=== PATIENT | female | born 1995 | race Two or more races ===

== ENCOUNTER 2024-09-17 13:34 | Outpatient (AMB) | payer MEDICAID, SELFPAY ==
--- NOTE | 2024-09-17 13:36 | OBCLNT_ITS ---
Vital Signs 09/17/24 13:58 Height 1.52 m Height Method Measured Weight 108.125 kg Weight Measurement Method Standing Scale BMI 46.5 BP 134/81 H Blood Pressure Source Automatic Cuff Blood Pressure Location Right Upper Arm Position Sitting Respiration 17 Pulse 100 Pulse Source Monitor Temp 98.5 F Temp Source Temporal Artery Scan Pulse Oximetry (%) 97 Oxygen Delivery Method Room Air Allergies/Home Meds Allergies & Medications Allergies No Known Allergies Allergy (Verified 09/17/24 14:00) Medication Reconciliation aspirin 81 mg tablet,delayed release (Adult Aspirin Regimen) 81 mg PO QDAY #60 tabs 09/17/24 [Rx] vitamin-ferrous fumarate 28 mg iron-folic acid 800 mcg tablet ( Vitamins with Minerals) 1 tab PO QDAY #60 tabs 09/17/24 [Rx] Intake Visit Data Collection New Patient or Established: Established Patient (seen at [facility] within 3 years) Reason for Visit:: OBI Consent obtained for Telemed Visit: No Seen by Clinical Staff ONLY (RN/MA): No Pharmacy Assistant Required: No Do You Feel Safe at Home: Yes Authorities Contacted: N/A PCP or OBGYN visit in last 3 months: No Hx Now: Yes Are you currently on any form of Control: No Pain Present Currently: No Pain Scale Used: Leon-Donis/Numerical Pain scale:: 0 Smoking Status Smoking Status: Never smoker Questionnaires Covid-19 Vaccine Questionnaire Has patient been vacinated for Covid-19 Have you been vacinated for Covid-19: Yes PHQ-9 PHQ-2 Over the last 2 weeks, how often have you been bothered by any of the following problems? 1. Little interest or pleasure in doing things: not at all 2. Feeling down, depressed, or hopeless: not at all Total score: 0 PHQ-9 3. Trouble falling or staying asleep, or sleeping too much: Not at all 4. Feeling tired or having little energy: Not at all 5. Poor appetite or overeating: Not at all 6. Feeling bad about yourself - or that you are a failure or have let yourself or your family down: Not at all 7. Trouble concentrating on things, such as reading the newspaper or watching television: Not at all 8. Moving or speaking so slowly that other people could have noticed? - Or the opposite - being so fidgety or restless that you have been moving around a lot more than usual: not at all 9. Thoughts that you would be better off or of hurting yourself in some way: Not at all Total score: 0 If you checked off any problems, how difficult have these problems made it for you to do your work, take care of things at home, or get along with other people?: not difficult at all Source: Developed by Drs. Asher Lozano, Luciana Khanna, Haris Lawrence and colleagues, with an educational susan from [employer]. Social History Living Situation History Lives With: Family Housing: Apartment Tobacco History Smoking Status: Never smoker Second Hand Smoke Exposure: No Alcohol History Alcohol Intake: Never Domestic Abuse History Do You Feel Safe at Home: Yes History of Present Illness HPI Narrative 28-year-old 6 para 5 comes today for initial OB appointment. Patient's had a hard time finding OB care for this . Her last period April 25, 2024. She reports sure dates. Estimated due date January 29, 2025. Denies any leaking bleeding or cramps. Patient and partner are happy with the . She reports movement. Patient denies any history of social habits. And denies any existence of chronic illness. She had GDM with her third and it was diet only. And she had a lap parvin in 2014. 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 Patient has had trouble finding care. Her last period April 25, 2024. She reports her dates. This gives EDC January 29, 2025. Reports good movement. Her last was significant for a small baby. And she had diabetes with her third . Denies social habits. Denies social history. Patient had a lap parvin. Denies any labor complaints. Both her and her partner are happy about the . schedule MFM sono, OB panel, A1c, NIPT and carrier screen today, start PNV and ASA. discuss diet, weight gain, walk, hydrate and PTL precaution. RTC 4 week obc Menstrual History Menstrual reliability: definite Flow: normal Menstrual regularity: regular Monthly: Yes Age at menarche: 12 On control pills at conception: No Date of positive home test: 04/25/24 OB History : 7 Para: 5 Hx # Pregnancies: 0 Hx Total # of Abortions (Spontaneous & Elective): 1 # of Living Children: 5 Delivery History 1st : Child's name: RIZWANA date: 10/08/14 sex: male Gestational age at delivery (weeks): 41 Delivery type: vaginal weight (lbs): 2721.554 g weight (oz): 311.845 g History of depression before or after : No 2nd : Child's name: NICOLE date: 09/29/15 sex: female Gestational age at delivery (weeks): 39 Delivery type: vaginal weight (lbs): 2721.554 g weight (oz): 368.544 g History of depression before or after : No 3rd : Child's name: GALO date: 01/31/17 sex: female Gestational age at delivery (weeks): 38 Delivery type: vaginal weight (lbs): 3175.147 g History of depression before or after : No 4th : Child's name: DEREK date: 03/02/18 sex: male Gestational age at delivery (weeks): 39 Delivery type: vaginal weight (lbs): 2721.554 g weight (oz): 283.495 g History of depression before or after : No 5th : Child's name: AYSE date: 01/06/24 sex: female Gestational age at delivery (weeks): 38 Delivery type: vaginal weight (lbs): 2267.962 g weight (oz): 368.544 g History of depression before or after : No Infection History & Risk Evaluation History of STDs: none HIV risk evaluation: low risk Hepatitis B risk evaluation: low risk Patient or partner has history of Genital Herpes: No Genetic Screening & History Genetic Screening/Teratology Counseling - Includes patient, baby's father, or anyone in either family with: 1. Patient's age 35 years or older as of estimated date of delivery: No 2. Thalassemia (Sinhala, Saudi Arabian, Mediterranean, or Background); MCV less than 80: No 3. Neural Tube Defect (Meningomyelocele, Spina Bifida, or Anencephaly): No 4. Congenital Heart Defect: No 5. Down Syndrome: No 6. Yordy-Sachs (Ashkenazi Rastafari, Cajun, [place] Dennis): No 7. Yolanda Disease (Ashkenazi Rastafari): No 8. Familial Dysautonomia (Ashkenazi Rastafari): No 9. Sickle Cell Disease or Trait (): No 10. Hemophilia or other blood disorders: No 11. Muscular Dystrophy: No 12. Cystic Fibrosis: No 13. [place]'s Chorea: No 14. Mental Retardation/Autism: No 15. Other inherited genetic or chromosomal disorder: No 16. Maternal Metabolic Disorder (EG,TYPE 1 Diabetes, PKU): No 17. Patient or baby's father had a child with defects not listed above: No 18. Recurrent loss or a stillbirth: No 19. Medications (including supplements, vitamins, herbs or otc drugs)/illicit/recreational drugs/alcohol since last menstrual period: No 20. Any other: No Infection History 1. Live with someone with TB or exposed to TB: No 2. Rash or viral illness since last menstrual period: No 3. Hepatitis B,C: No Other (see comments) Source: [employer] Review of Systems Review of Systems Systems Reviewed: All systems reviewed, normal except as documented Exam General Limitations: no limitations General Appearance: alert, in no apparent distress, comfortable, cooperative, healthy appearing, well developed and well groomed Head Head exam: atraumatic, normocephalic and normal inspection Chest Chest inspection: Present normal inspection and symmetric chest wall rise Resp Respiratory exam: Present normal lung sounds bilaterally Card Cardiovascular exam: Present regular rate, normal rhythm and normal heart sounds Psych Psychiatric exam: Present normal affect and normal mood Office Procedures OB Clinic LOC & Office Proc's Nursing/Assessment Patient Status: Established Patient OB Clinic Nursing Assessment: Medication Reconciliation, Update PMH in EMR and Vital Signs OB Clinic Coordination of Care: Complex Care and Chronic Disease 1-5, Consent,records obtained, informed consent, 4+ Authorizations needed and Staff clarify orders Special Needs: Heart tones Established Patient Charge Established Patient Point Assignment: 125 Established Patient Point Charge: EP Level 4 (120-155) Assessment & Plan Diagnosis / Problem List (1) Obesity affecting in second trimester: Status: Acute (2) Encounter for supervision of high risk in second trimester, antepartum: Status: Acute Plan I ordered vitamins. Ordered low-dose baby aspirin to start 1 daily. Schedule ultrasound at [facility] with maternal- medicine. Patient will do OB panel today with hemoglobin A1c and NIPT. Carrier screens as well. Increase fluids. Discussed labor precautions. And return in 4 weeks for OB check Additional Plan Follow Up: 4 Weeks (obc)
[2024-09-17 13:58] VITALS: BP 134/81; PULSE 100; RESP 17; TEMP 36.9; O2SAT 97; BMI 46.5
== END 2024-09-17 14:21 | disposition home or self-care (01) ==
LOC: HODSOBC 13:34
PROVIDERS: PCP Advanced Practice Midwife; Referring Provider Advanced Practice Midwife; Supervising Provider Advanced Practice Midwife; Visit Provider Advanced Practice Midwife
DX: O09.42 Supervision of pregnancy with grand multiparity, second trimester (principal); O09.892 Supervision of other high risk pregnancies, second trimester; O99.212 Obesity complicating pregnancy, second trimester; Z3A.20 20 weeks gestation of pregnancy; Z86.32 Personal history of gestational diabetes
CPT/HCPCS: 99214; G0463

== ENCOUNTER 2024-10-15 14:41 | Outpatient (AMB) | payer MEDICAID, SELFPAY ==
[2024-10-15 14:49] VITALS: BP 117/76; PULSE 94; RESP 17; TEMP 36.9; O2SAT 97; BMI 47.1
--- NOTE | 2024-10-15 14:49 | OBCLNT_ITS ---
Vital Signs 10/15/24 14:49 Height 1.52 m Height Method Measured Weight 108.919 kg Weight Measurement Method Standing Scale BMI 47.1 BP 117/76 Blood Pressure Source Automatic Cuff Blood Pressure Location Right Upper Arm Position Sitting Respiration 17 Pulse 94 Pulse Source Monitor Temp 98.4 F Temp Source Temporal Artery Scan Pulse Oximetry (%) 97 Oxygen Delivery Method Room Air Allergies/Home Meds Allergies & Medications Allergies No Known Allergies Allergy (Verified 10/15/24 14:50) Medication Reconciliation aspirin 81 mg tablet,delayed release (Adult Aspirin Regimen) 81 mg PO QDAY #60 tabs 09/17/24 [Rx Confirmed 10/15/24] vitamin-ferrous fumarate 28 mg iron-folic acid 800 mcg tablet ( Vitamins with Minerals) 1 tab PO QDAY #60 tabs 09/17/24 [Rx Confirmed 10/15/24] Intake Visit Data Collection New Patient or Established: Established Patient (seen at [facility] within 3 years) Reason for Visit:: OBC Consent obtained for Telemed Visit: No Seen by Clinical Staff ONLY (RN/MA): No Dietary Director Required: No Do You Feel Safe at Home: Yes Authorities Contacted: N/A PCP or OBGYN visit in last 3 months: Yes Date of Last PCP or OBGYN visit: 09/17/24 Hx Now: Yes Are you currently on any form of Control: No Pain Present Currently: No Pain Scale Used: Leon-Donis/Numerical Pain scale:: 0 Smoking Status Smoking Status: Never smoker Questionnaires Covid-19 Vaccine Questionnaire Has patient been vacinated for Covid-19 Have you been vacinated for Covid-19: No PHQ-9 PHQ-2 Over the last 2 weeks, how often have you been bothered by any of the following problems? 1. Little interest or pleasure in doing things: not at all PHQ-9 8. Moving or speaking so slowly that other people could have noticed? - Or the opposite - being so fidgety or restless that you have been moving around a lot more than usual: not at all Source: Developed by Drs. Asher Lozano, Luciana Khanna, Haris Lawrence and colleagues, with an educational susan from [employer]. 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 Patient has had trouble finding care. Her last period April 25, 2024. She reports her dates. This gives EDC January 29, 2025. Reports good movement. Her last was significant for a small baby. And she had diabetes with her third . Denies social habits. Denies social history. Patient had a lap parvin. Denies any labor complaints. Both her and her partner are happy about the . schedule MFM sono, OB panel, A1c, NIPT and carrier screen today, start PNV and ASA. discuss diet, weight gain, walk, hydrate and PTL precaution. RTC 4 week obc 10/15/24 -?-?-?-?-?-?-?-?-?-?-?-?- 24w 5d 108.919 kg 117/76 absent unknown 24 135 active Reports good movement. Patient denies bleeding. Denies leaking. Denies cramping. Maternal- medicine anatomy scan is scheduled for 2 weeks. No OB complaints . Third trimest er labs scheduled today. Discussed diet and weight. Patient has a maternal- medicine sono's grams scheduled in 2 weeks. Discussed labor precautions. Increase fluids and continue vitamins RUBÉN Calculator Estimated Delivery Date Method Current WG Current Estimate 01/30/25 LMP (Certain) 24w 5d Notes Visit Date: 10/15/24 Last Updated by: Elena Herman CNM 10/15/24: 28 yo . LMP 04/25/24. EDC: 01/30/25. OB panel: O+,abs-, rpr;;nr. rub NI, HBSAG-,HIV-,HC-,GC/CT-, NIPT-/girl Office Procedures OB Clinic LOC & Office Proc's Nursing/Assessment Patient Status: Established Patient OB Clinic Nursing Assessment: Medication Reconciliation, Update PMH in EMR and Vital Signs OB Clinic Coordination of Care: Complex Care and Chronic Disease 1-5, Consent,records obtained, informed consent, Education Simp Pt/Fam and 4+ Authorizations needed Special Needs: Heart tones Established Patient Charge Established Patient Point Assignment: 130 Established Patient Point Charge: EP Level 4 (120-155) Assessment & Plan Diagnosis / Problem List (1) Obesity affecting in second trimester: Status: Acute (2) Encounter for supervision of high risk in second trimester, antepartum: Status: Acute Plan Continue vitamins. Discussed labor precautions. Maternal- medicine anatomy scan is pending. Third trimester labs ordered. Discussed diet and weight gain. Increase fluids. Will return in 4 weeks OB check Additional Plan Follow Up: 4 Weeks (obc)
== END 2024-10-15 15:44 | disposition home or self-care (01) ==
LOC: HODSOBC 14:41
PROVIDERS: Supervising Provider Advanced Practice Midwife; Visit Provider Advanced Practice Midwife
DX: O09.892 Supervision of other high risk pregnancies, second trimester (principal); O99.212 Obesity complicating pregnancy, second trimester; Z3A.24 24 weeks gestation of pregnancy
CPT/HCPCS: 99214; G0463

== ENCOUNTER 2024-11-12 14:25 | Outpatient (AMB) | payer MEDICAID, SELFPAY ==
[2024-11-12 14:35] VITALS: BP 137/83; PULSE 102; RESP 20; TEMP 36.8; O2SAT 98; BMI 47.2
--- NOTE | 2024-11-12 14:35 | OBCLNT_ITS ---
Vital Signs 11/12/24 14:35 11/12/24 16:26 Height 1.52 m Height Method Stated Weight 109.089 kg Weight Measurement Method Standing Scale BMI 47.2 BP 137/83 H 117/76 Blood Pressure Source Automatic Cuff Blood Pressure Location Left Upper Arm Position Sitting Respiration 20 Pulse 102 H Pulse Source Monitor Temp 98.3 F Temp Source Oral Pulse Oximetry (%) 98 Oxygen Delivery Method Room Air Allergies/Home Meds Allergies & Medications Allergies No Known Allergies Allergy (Verified 11/12/24 14:36) Medication Reconciliation aspirin 81 mg tablet,delayed release (Adult Aspirin Regimen) 81 mg PO QDAY #60 tabs 09/17/24 [Rx Confirmed 11/12/24] vitamin-ferrous fumarate 28 mg iron-folic acid 800 mcg tablet ( Vitamins with Minerals) 1 tab PO QDAY #60 tabs 09/17/24 [Rx Confirmed 11/12/24] Intake Visit Data Collection New Patient or Established: Established Patient (seen at [facility] within 3 years) Reason for Visit:: CARE Seen by Clinical Staff ONLY (RN/MA): 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 1. Little interest or pleasure in doing things: not at all 2. Feeling down, depressed, or hopeless: not at all Total score: 0 PHQ-9 3. Trouble falling or staying asleep, or sleeping too much: Not at all 4. Feeling tired or having little energy: Not at all 5. Poor appetite or overeating: Not at all 6. Feeling bad about yourself - or that you are a failure or have let yourself or your family down: Not at all 7. Trouble concentrating on things, such as reading the newspaper or watching television: Not at all 8. Moving or speaking so slowly that other people could have noticed? - Or the opposite - being so fidgety or restless that you have been moving around a lot more than usual: not at all 9. Thoughts that you would be better off or of hurting yourself in some way: Not at all Total score: 0 Source: Developed by Drs. Asher Lozano, Luciana Khanna, Haris Lawrence and colleagues, with an educational susan from [employer]. 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 Patient has had trouble finding care. Her last period April 25, 2024. She reports her dates. This gives EDC January 29, 2025. Reports good movement. Her last was significant for a small baby. And she had diabetes with her third . Denies social habits. Denies social history. Patient had a lap parvin. Denies any labor complaints. Both her and her partner are happy about the . schedule MFM sono, OB panel, A1c, NIPT and carrier screen today, start PNV and ASA. discuss diet, weight gain, walk, hydrate and PTL precaution. RTC 4 week obc 10/15/24 -?-?-?-?-?-?-?-?-?-?-?-?- 24w 5d 108.919 kg 117/76 absent unknown 24 135 active Reports good movement. Patient denies bleeding. Denies leaking. Denies cramping. Maternal- medicine anatomy scan is scheduled for 2 weeks. No OB complaints . Third trimest er labs scheduled today. Discussed diet and weight. Patient has a maternal- medicine sono's grams scheduled in 2 weeks. Discussed labor precautions. Increase fluids and continue vitamins 11/12/24 -?-?-?-?-?-?-?-?-?-?-?-?- 28w 5d 109.089 kg 137/83 117/76 absent unknown 28 135 active Reports good movement. Denies labor contractions. Denies bleeding. Denies leaking fluid. Continue with GDM diet. Offer Tdap next visit. Increase fluids. Continue prenatals. And keep follow-up appointment in 3 weeks with MFM for growth. Return in 3 weeks OB check RUBÉN Calculator Estimated Delivery Date Method Current WG Current Estimate 01/30/25 LMP (Certain) 28w 5d Other Estimates 01/30/25 Ultrasound #1 28w 5d Notes Visit Date: 11/12/24 Last Updated by: Elena Herman CNM 3rd tri lab: 1 hr: 132. A1: 5.2, RPR::NR. MFM sono 10/16/24: IUP: 24w6, 72%. CIRA: 17. normal ECHO Visit Date: 10/15/24 Last Updated by: Elena Herman CNM 10/15/24: 28 yo . LMP 04/25/24. EDC: 01/30/25. OB panel: O+,abs-, rpr;;nr. rub NI, HBSAG-,HIV-,HC-,GC/CT-, NIPT-/girl Office Procedures OB Clinic LOC & Office Proc's Nursing/Assessment Patient Status: Established Patient OB Clinic Nursing Assessment: Medication Reconciliation, Update PMH in EMR and Vital Signs OB Clinic Coordination of Care: Complex Care and Chronic Disease 1-5, Consent,records obtained, informed consent, Education Simp Pt/Fam, 1 Ins Authorization, Lab and Imaging orders, Results/Orders obtained and Staff clarify orders Special Needs: Heart tones Established Patient Charge Established Patient Point Assignment: 150 Established Patient Point Charge: EP Level 4 (120-155) Assessment & Plan Diagnosis / Problem List (1) Encounter for supervision of high risk in third trimester, antepartum: Status: Acute (2) Obesity complicating in first trimester: Status: Acute Plan Discussed labor precautions. Offer Tdap next visit. Increase fluids. Continue with GDM diet and watching sugary foods. Will schedule patient for weekly NST BPP next visit. Patient will follow-up with MFM for growth sono in 3 weeks. Additional Plan Follow Up: 3 Weeks (obc)
[2024-11-12 16:26] VITALS: BP 117/76
== END 2024-11-12 15:30 | disposition home or self-care (01) ==
LOC: HODSOBC 14:25
PROVIDERS: Supervising Provider Advanced Practice Midwife; Visit Provider Advanced Practice Midwife
DX: O09.893 Supervision of other high risk pregnancies, third trimester (principal); O99.213 Obesity complicating pregnancy, third trimester; O24.410 Gestational diabetes mellitus in pregnancy, diet controlled; Z3A.28 28 weeks gestation of pregnancy; Z79.82 Long term (current) use of aspirin
CPT/HCPCS: 99214; G0463

== ENCOUNTER 2024-12-03 13:40 | Outpatient (AMB) | payer MEDICAID, SELFPAY ==
--- NOTE | 2024-12-03 13:46 | OBCLNT_ITS ---
Vital Signs 12/03/24 13:55 Height 1.52 m Height Method Stated Weight 110.336 kg Weight Measurement Method Standing Scale BMI 47.7 BP 126/81 Blood Pressure Source Automatic Cuff Blood Pressure Location Left Upper Arm Position Sitting Respiration 18 Pulse 93 Pulse Source Monitor Temp 98.2 F Temp Source Oral Pulse Oximetry (%) 97 Oxygen Delivery Method Room Air Allergies/Home Meds Allergies & Medications Allergies No Known Allergies Allergy (Verified 12/03/24 13:56) Medication Reconciliation aspirin 81 mg tablet,delayed release (Adult Aspirin Regimen) 81 mg PO QDAY #60 tabs 09/17/24 [Rx Confirmed 12/03/24] vitamin-ferrous fumarate 28 mg iron-folic acid 800 mcg tablet ( Vitamins with Minerals) 1 tab PO QDAY #60 tabs 09/17/24 [Rx Confirmed 12/03/24] Intake Visit Data Collection New Patient or Established: Established Patient (seen at [facility] within 3 years) Reason for Visit:: CARE Seen by Clinical Staff ONLY (RN/MA): No Jacker Required: No Do You Feel Safe at Home: Yes Authorities Contacted: N/A PCP or OBGYN visit in last 3 months: Yes Hx Now: Yes Are you currently on any form of Control: No Pain Present Currently: No Pain Scale Used: Leon-Donis/Numerical Pain scale:: 0 Smoking Status Smoking Status: Never smoker Questionnaires Covid-19 Vaccine Questionnaire Has patient been vacinated for Covid-19 Have you been vacinated for Covid-19: Yes PHQ-9 PHQ-2 Over the last 2 weeks, how often have you been bothered by any of the following problems? 1. Little interest or pleasure in doing things: not at all 2. Feeling down, depressed, or hopeless: not at all Total score: 0 PHQ-9 3. Trouble falling or staying asleep, or sleeping too much: Not at all 4. Feeling tired or having little energy: Not at all 5. Poor appetite or overeating: Not at all 6. Feeling bad about yourself - or that you are a failure or have let yourself or your family down: Not at all 7. Trouble concentrating on things, such as reading the newspaper or watching te levision: Not at all 8. Moving or speaking so slowly that other people could have noticed? - Or the opposite - being so fidgety or restless that you have been moving around a lot more than usual: not at all 9. Thoughts that you would be better off or of hurting yourself in some way: Not at all Total score: 0 Source: Developed by Drs. Asher Lozano, Luciana Khanna, Haris Lawrence and colleagues, with an educational susan from [employer]. 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 Patient has had trouble finding care. Her last period April 25, 2024. She reports her dates. This gives EDC January 29, 2025. Reports good movement. Her last was significant for a small baby. And she had diabetes with her third . Denies social habits. Denies social history. Patient had a lap parvin. Denies any labor complaints. Both her and her partner are happy about the . schedule MFM sono, OB panel, A1c, NIPT and carrier screen today, start PNV and ASA. discuss diet, weight gain, walk, hydrate and PTL precaution. RTC 4 week obc 10/15/24 -?-?-?-?-?-?-?-?-?-?-?-?- 24w 5d 108.919 kg 117/76 absent unknown 24 135 active Reports good movement. Patient denies bleeding. Denies leaking. Denies cramping. Maternal- medicine anatomy scan is scheduled for 2 weeks. No OB complaints . Third trimest er labs scheduled today. Discussed diet and weight. Patient has a maternal- medicine sono's grams scheduled in 2 weeks. Discussed labor precautions. Increase fluids and continue vitamins 11/12/24 -?-?-?-?-?-?-?-?-?-?-?-?- 28w 5d 109.089 kg 137/83 117/76 absent unknown 28 135 active Reports good movement. Denies labor contractions. Denies bleeding. Denies leaking fluid. Continue with GDM diet. Offer Tdap next visit. Increase fluids. Continue prenatals. And keep follow-up appointment in 3 weeks with [facility] for growth. Return in 3 weeks OB check 12/03/24 -?-?-?-?-?-?-?-?-?-?-?-?- 31w 5d 110.336 kg 126/81 absent unknown 32 145 active Reports good movement. Denies leaking, bleeding. Reports abdominal pain that comes and goes Reports good movement. Denies leaking, bleeding. Reports abdominal pain that comes and goes.. complains of ligament pain, back ache. difficult to drive due to enlarged abdomen. 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 works in [employer]. f/u sono 01/08 discuss ptl prec aution, discuss diet and weight. increase fluid. TDAP. start disability 12/14/24. Last day of work is 12/13. order maternity belt. rtc 2 week obc RUBÉN Calculator Estimated Delivery Date Method Current WG Current Estimate 01/30/25 LMP (Certain) 31w 5d Other Estimates 01/30/25 Ultrasound #1 31w 5d 01/30/25 Ultrasound #2 31w 5d 01/30/25 Manual 31w 5d final rubén: 01/11 04/05,EFW: 63%, ECHO:normal Notes Visit Date: 11/12/24 Last Updated by: Elena Herman CNM 3rd tri lab: 1 hr: 132. A1: 5.2, RPR::NR. MFM sono 10/16/24: IUP: 24w6, 72%. CIRA: 17. normal ECHO Visit Date: 10/15/24 Last Updated by: Elena Herman CNM 10/15/24: 28 yo . LMP 04/25/24. EDC: 01/30/25. OB panel: O+,abs-, rpr;;nr. rub NI, HBSAG-,HIV-,HC-,GC/CT-, NIPT-/girl Office Procedures OBC Clinic LOC & Office Proc's Nursing/Assessment Patient Status: Established Patient OB Clinic Nursing Assessment: Medication Reconciliation, Update PMH in EMR and Vital Signs OB Clinic Coordination of Care: Complex Care and Chronic Disease 1-5, Consent,records obtained, informed consent, Education Simp Pt/Fam, Lab and Imaging orders, Results/Orders obtained and Staff clarify orders Special Needs: Heart tones Established Patient Charge Established Patient Point Assignment: 135 Established Patient Point Charge: EP Level 4 (120-155) Immunizations diphth,pertus(acell),tetanus 2.5 Lf unit-8 mcg-5 Lf/0.5mL IM syringe Performing Provider: Elena Herman CNM Performing Location: [facility] Clinic Administered by: Nusrat Wynne MA on 12/03/24 14:24 Dose Route Admin Location Dispensed Lot Number Expiration Date Pack age [facility] [place] Neck Skewer 0.5 mL IM Left Deltoid 0.5 mL [id number] 01/29/27 98947-590-34 [id number] [employer] [facility] V[facility] Given Date VIS Provided VIS Publication Date 12/03/24 Single Vaccine 24 Eligibility Eligibility Date Funding Source Public Non-[facility] Assessment & Plan Diagnosis / Problem List (1) Encounter for supervision of high risk in third trimester, antepartum: Status: Acute Plan Ordered maternity belt. Comfort measures for backache and ligament pain. Start disability December 14, 2024. Keep follow-up MFM appointment for January 08. Tdap today. Discussed labor precautions. Increase fluids. Return in 2 weeks OB check. Discussed diet and weight gain. Total weight gain so far is 9 pounds Additional Plan Follow Up: 2 Weeks (obc)
[2024-12-03 13:55] VITALS: BP 126/81; PULSE 93; RESP 18; TEMP 36.8; O2SAT 97; BMI 47.7
== END 2024-12-03 14:03 | disposition home or self-care (01) ==
LOC: HODSOBC 13:40
PROVIDERS: Supervising Provider Advanced Practice Midwife; Visit Provider Advanced Practice Midwife
DX: O09.893 Supervision of other high risk pregnancies, third trimester (principal); O99.891 Other specified diseases and conditions complicating pregnancy; Z3A.31 31 weeks gestation of pregnancy; M54.9 Dorsalgia, unspecified; Z23 Encounter for immunization
CPT/HCPCS: 90471; 90715; 99214; G0463

== ENCOUNTER 2024-12-17 13:09 | Outpatient (AMB) | payer MEDICAID, SELFPAY ==
[2024-12-17 13:19] VITALS: BP 121/81; PULSE 100; RESP 17; TEMP 36.9; O2SAT 98; BMI 47.7
--- NOTE | 2024-12-17 13:19 | OBCLNT_ITS ---
Vital Signs 12/17/24 13:19 Height 1.52 m Height Method Stated Weight 110.223 kg Weight Measurement Method Standing Scale BMI 47.7 BP 121/81 Blood Pressure Source Automatic Cuff Blood Pressure Location Right Upper Arm Position Sitting Respiration 17 Pulse 100 Pulse Source Monitor Temp 98.5 F Temp Source Temporal Artery Scan Pulse Oximetry (%) 98 Oxygen Delivery Method Room Air Allergies/Home Meds Allergies & Medications Allergies No Known Allergies Allergy (Verified 12/17/24 13:21) Medication Reconciliation aspirin 81 mg tablet,delayed release (Adult Aspirin Regimen) 81 mg PO QDAY #60 tabs 09/17/24 [Rx Confirmed 12/17/24] vitamin-ferrous fumarate 28 mg iron-folic acid 800 mcg tablet ( Vitamins with Minerals) 1 tab PO QDAY #60 tabs 09/17/24 [Rx Confirmed 12/17/24] Intake Visit Data Collection New Patient or Established: Established Patient (seen at [facility] within 3 years) Reason for Visit:: OBC Seen by Clinical Staff ONLY (RN/MA): No 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 1. Little interest or pleasure in doing things: not at all 2. Feeling down, depressed, or hopeless: not at all Total score: 0 PHQ-9 3. Trouble falling or staying asleep, or sleeping too much: Not at all 4. Feeling tired or having little energy: Not at all 5. Poor appetite or overeating: Not at all 6. Feeling bad about yourself - or that you are a failure or have let yourself or your family down: Not at all 7. Trouble concentrating on things, such as reading the newspaper or watching television: Not at all 8. Moving or speaking so slowly that other people could have noticed? - Or the opposite - being so fidgety or restless that you have been moving around a lot more than usual: not at all 9. Thoughts that you would be better off or of hurting yourself in some way: Not at all Total score: 0 If you checked off any problems, how difficult have these problems made it for you to do your work, take care of things at home, or get along with other people?: not difficult at all Source: Developed by Drs. Asher Lozano, Luciana Khanna, Haris Lawrence and colleagues, with an educational susan from [employer]. 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 Patient has had trouble finding care. Her last period April 25, 2024. She reports her dates. This gives EDC January 29, 2025. Reports good movement. Her last was significant for a small baby. And she had diabetes with her third . Denies social habits. Denies social history. Patient had a lap parvin. Denies any labor complaints. Both her and her partner are happy about the . schedule MFM sono, OB panel, A1c, NIPT and carrier screen today, start PNV and ASA. discuss diet, weight gain, walk, hydrate and PTL precaution. RTC 4 week obc 08/06/25 -?-?-?-?-?-?-?-?-?-?-?-?- 24w 5d 108.919 kg 117/76 absent unknown 24 135 active Reports good movement. Patient denies bleeding. Denies leaking. Denies cramping. Maternal - medicine anatomy scan is scheduled for 2 weeks. No OB complaints . Third trimester labs scheduled today. Discussed diet and weight. Patient has a maternal- medicine sono's grams scheduled in 2 weeks. Discussed labor precautions. Increase fluids and continue vitamins 11/12/24 -?-?-?-?-?-?-?-?-?-?-?-?- 28w 5d 109.089 kg 137/83 117/76 absent unknown 28 135 active Reports good movement. Denies labor contractions. Denies bleeding. Denies leaking fluid. Continue with GDM diet. Offer Tdap next visit. Increase fluids. Continue prenatals. And keep follow-up appointment in 3 weeks with MFM for growth. Return in 3 weeks OB check 12/03/24 -?-?-?-?-?-?-?-?-?-?-?-?- 31w 5d 110.336 kg 126/81 absent unknown 32 145 active Reports good movement. Denies leaking, bleeding. Reports abdominal pain that comes and goes Reports good movement. Denies leaking, bleeding. Reports abdominal pain that comes and goes.. complains of ligament pain, back ache. difficult to drive due to enlarged abdomen. 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 f/u sono 01/08 discuss ptl prec aution, discuss diet and weight. increase fluid. TDAP. start disability 12/14/24. Last day of work is 12/13. order maternity belt. rtc 2 week obc 12/17/24 -?-?-?-?-?-?-?-?-?-?-?-?- 33w 5d 110.223 kg 121/81 absent cephalic 34 14 5 active Reports good movement. Denies labor complaints. Denies leaking, bleeding, contractions. Patient reports that she tries to watch her diet and low sugary foods and is very active Schedul e weekly NST BPP. Discussed kick count twice a day. Discussed diet and weight gain. Increase fluids. Keep maternal- medicine appointment June 08, 2024. Return in 2 weeks OB check RUBÉN Calculator Estimated Delivery Date Method Current WG Current Estimate 01/30/25 LMP (Certain) 33w 5d Other Estimates 01/30/25 Ultrasound #1 33w 5d 01/30/25 Ultrasound #2 33w 5d 01/30/25 Manual 33w 5d final rubén: 01/11 04/05,EFW: 63%, ECHO:normal Notes Visit Date: 11/12/24 Last Updated by: Elena Herman CNM 3rd tri lab: 1 hr: 132. A1: 5.2, RPR::NR. MFM sono 10/16/24: IUP: 24w6, 72%. CIRA: 17. normal ECHO Visit Date: 10/15/24 Last Updated by: Elena Herman CNM 10/15/24: 28 yo . LMP 04/25/24. EDC: 01/30/25. OB panel: O+,abs-, rpr;;nr. rub NI, HBSAG-,HIV-,HC-,GC/CT-, NIPT-/girl Office Procedures OBC Clinic LOC & Office Proc's Nursing/Assessment Patient Status: Established Patient OB Clinic Nursing Assessment: Medication Reconciliation, Update PMH in EMR and Vital Signs OB Clinic Coordination of Care: Complex Care and Chronic Disease 1-5, Education Complex Pt/Fam, Consent,records obtained, informed consent and Staff clarify orders Special Needs: Heart tones Established Patient Charge Established Patient Point Assignment: 120 Established Patient Point Charge: EP Level 4 (120-155) Assessment & Plan Diagnosis / Problem List (1) Encounter for supervision of high risk in third trimester, antepartum: Status: Acute (2) Obesity affecting in second trimester: Status: Acute Qualifiers: Obesity type affecting : severe obesity due to excess calories Qualified Code(s): O99.212 - Obesity complicating , second trimester; E66.01 - Morbid (severe) obesity due to excess calories Plan Schedule weekly NST BPP. Kick count twice a day. Discussed diet and weight gain. Increase fluids. Continue prenatals. Continue maternal- medicine appointment June 08. Return in 2 weeks OB check Additional Plan Follow Up: 2 Weeks (obc)
== END 2024-12-17 13:41 | disposition home or self-care (01) ==
LOC: HODSOBC 13:09
PROVIDERS: Supervising Provider Advanced Practice Midwife; Visit Provider Advanced Practice Midwife
DX: O09.893 Supervision of other high risk pregnancies, third trimester (principal); O99.213 Obesity complicating pregnancy, third trimester; E66.01 Morbid (severe) obesity due to excess calories; Z3A.33 33 weeks gestation of pregnancy
CPT/HCPCS: 99214; G0463

== ENCOUNTER 2024-12-30 12:04 | Outpatient (CLI) | payer MEDICAID, SELFPAY ==
[2024-12-30] MEDS: RINGERS LACTATED 1000 ML 1,000 ML 999 ML IV (13:13)
[2024-12-30 13:17] VITALS: BP 133/85; PULSE 78; RESP 20; TEMP 36.7
[2024-12-30 14:15] VITALS: BP 164/81; PULSE 67
== END 2024-12-30 14:15 | disposition home or self-care (01) ==
LOC: S4S1 12:06 → S4SX 12:07
PROVIDERS: PCP Family Medicine; Referring Provider Advanced Practice Midwife; Visit Provider Advanced Practice Midwife
DX: Z34.83 Encounter for supervision of other normal pregnancy, third trimester (principal); Z3A.35 35 weeks gestation of pregnancy
CPT/HCPCS: 59025; J7120

== ENCOUNTER 2024-12-31 13:45 | Outpatient (AMB) | payer MEDICAID, SELFPAY ==
[2024-12-31 13:47] VITALS: BP 126/80; PULSE 95; RESP 18; TEMP 36.5; O2SAT 98; BMI 49.4
--- NOTE | 2024-12-31 13:47 | OBCLNT_ITS ---
Vital Signs 12/31/24 13:47 Height 1.5 m Height Method Stated Weight 111.13 kg Weight Measurement Method Standing Scale BMI 49.4 BP 126/80 Blood Pressure Source Automatic Cuff Blood Pressure Location Left Upper Arm Position Sitting Respiration 18 Pulse 95 Pulse Source Monitor Temp 97.7 F Temp Source Oral Pulse Oximetry (%) 98 Oxygen Delivery Method Room Air Allergies/Home Meds Allergies & Medications Allergies No Known Allergies Allergy (Verified 12/31/24 13:51) Medication Reconciliation aspirin 81 mg tablet,delayed release (Adult Aspirin Regimen) 81 mg PO QDAY #60 tabs 09/17/24 [Rx Confirmed 12/31/24] vitamin-ferrous fumarate 28 mg iron-folic acid 800 mcg tablet ( Vitamins with Minerals) 1 tab PO QDAY #60 tabs 09/17/24 [Rx Confirmed 12/31/24] Intake Visit Data Collection New Patient or Established: Established Patient (seen at [facility] within 3 years) Reason for Visit:: CARE Seen by Clinical Staff ONLY (RN/MA): No 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 Do You Feel Safe at Home: Yes Authorities Contacted: N/A PCP or OBGYN visit in last 3 months: Yes Hx Now: Yes Are you currently on any form of Control: No Pain Present Currently: No Pain Scale Used: Leon-Donis/Numerical Pain scale:: 0 Smoking Status Smoking Status: Never smoker Immunizations Flu Vaccine in the Last 12 Months: Yes Flu Vaccine Exclusion Criteria: Already Received Questionnaires Covid-19 Vaccine Questionnaire Has patient been vacinated for Covid-19 Have you been vacinated for Covid-19: Yes PHQ-9 PHQ-2 Over the last 2 weeks, how often have you been bothered by any of the following problems? 1. Little interest or pleasure in doing things: not at all 2. Feeling down, depressed, or hopeless: not at all Total score: 0 PHQ-9 3. Trouble falling or staying asleep, or sleeping too much: Not at all 4. Feeling tired or having little energy: Not at all 5. Poor appetite or overeating: Not at all 6. Feeling bad about yourself - or that you are a failure or have let yourself or your family down: Not at all 7. Trouble concentrating on things, such as reading the newspaper or watching television: Not at all 8. Moving or speaking so slowly that other people could have noticed? - Or the opposite - being so fidgety or restless that you have been moving around a lot more than usual: not at all 9. Thoughts that you would be better off or of hurting yourself in some way: Not at all Total score: 0 Source: Developed by Drs. Asher Lozano, Luciana Khanna, Haris Lawrence and colleagues, with an educational susan from [employer]. 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 Patient has had trouble finding care. Her last period April 25, 2024. She reports her dates. This gives EDC January 29, 2025. Reports good movement. Her last was significant for a small baby. And she had diabetes with her third . Denies social habits. Denies social history. Patient had a lap parvin. Denies any labor complaints. Both her and her partner are happy about the . schedule MFM sono, OB panel, A1c, NIPT and carrier screen today, start PNV and ASA. discuss diet, weight gain, walk, hydrate and PTL precaution. RTC 4 week obc 10/15/24 -?-?-?-?-?-?-?-?-?-?-?-?- 24w 5d 108.919 kg 117/76 absent unknown 24 135 active Reports good movement. Patient denies bleeding. Denies leaking. Denies cramping. Maternal - medicine anatomy scan is scheduled for 2 weeks. No OB complaints . Third trimester labs scheduled today. Discussed diet and weight. Patient has a maternal- medicine sono's grams scheduled in 2 weeks. Discussed labor precautions. Increase fluids and continue vitamins 11/12/24 -?-?-?-?-?-?-?-?-?-?-?-?- 28w 5d 109.089 kg 137/83 117/76 absent unknown 28 135 active Reports good movement. Denies labor contractions. Denies bleeding. Denies leaking fluid. Continue with GDM diet. Offer Tdap next visit. Increase fluids. Continue prenatals. And keep follow-up appointment in 3 weeks with MFM for growth. Return in 3 weeks OB check 12/03/24 -?-?-?-?-?-?-?-?-?-?-?-?- 31w 5d 110.336 kg 126/81 absent unknown 32 145 active Reports good movement. Denies leaking, bleeding. Reports abdominal pain that comes and goes Reports good movement. Denies leaking, bleeding. Reports abdominal pain that comes and goes.. complains of ligament pain, back ache. difficult to drive due to enlarged abdomen. 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 works in [employer]. f/u sono 01/08 discuss ptl prec aution, discuss diet and weight. increase fluid. TDAP. start disability 12/14/24. Last day of work is 12/13. order maternity belt. rtc 2 week obc 12/17/24 -?-?-?-?-?-?-?-?-?-?-?-?- 33w 5d 110.223 kg 121/81 absent cephalic 34 14 5 active Reports good movement. Denies labor complaints. Denies leaking, bleeding, contractions. Patient reports that she tries to watch her diet and low sugary foods and is very active Schedul e weekly NST BPP. Discussed kick count twice a day. Discussed diet and weight gain. Increase fluids. Keep maternal- medicine appointment June 08, 2024. Return in 2 weeks OB check 12/31/24 -?-?-?-?-?-?-?-?-?-?-?-?- 35w 5d 111.13 kg 126/80 absent cephalic 36 156 active [id number] [id number] on 12/10/24. Reports good movement. Occasional contraction and pressure. Denies leaki ng or bleeding. GBS today. Cont inue weekly NST BPP. Discussed kick count and labor precautions with parameters. Return in a week OB check RUBÉN Calculator Estimated Delivery Date Method Current WG Current Estimate 01/30/25 LMP (Certain) 35w 5d Other Estimates 01/30/25 Ultrasound #1 35w 5d 01/30/25 Ultrasound #2 35w 5d 01/30/25 Manual 35w 5d final rubén: 01/11 04/05,EFW: 63%, ECHO:normal Notes Visit Date: 11/12/24 Last Updated by: Elena Herman CNM 3rd tri lab: 1 hr: 132. A1: 5.2, RPR::NR. MFM sono 10/16/24: IUP: 24w6, 72%. CIRA: 17. normal ECHO Visit Date: 10/15/24 Last Updated by: Elena Herman CNM 10/15/24: 28 yo . LMP 04/25/24. EDC: 01/30/25. OB panel: O+,abs-, rpr;;nr. rub NI, HBSAG-,HIV-,HC-,GC/CT-, NIPT-/girl Office Procedures OBC Clinic LOC & Office Proc's Nursing/Assessment Patient Status: Established Patient OB Clinic Nursing Assessment: Medication Reconciliation, Update PMH in EMR and Vital Signs OB Clinic Coordination of Care: Complex Care and Chronic Disease 1-5, Education Complex Pt/Fam, Consent,records obtained, informed consent, 1 Ins Authorization, Lab and Imaging orders, Results/Orders obtained and Staff clarify orders Special Needs: Heart tones Miscellaneous Interventions: Culture Specimen Collection Established Patient Charge Established Patient Point Assignment: 170 Established Patient Point Charge: EP Level 5 (160-above) Assessment & Plan Diagnosis / Problem List (1) Encounter for supervision of high risk in third trimester, antepartum: Status: Acute (2) Obesity affecting in second trimester: Status: Acute Qualifiers: Obesity type affecting : severe obesity due to excess calories Qualified Code(s): O99.212 - Obesity complicating , second trimester; E66.01 - Morbid (severe) obesity due to excess calories Plan Discussed labor precautions with parameters. Kick count twice a day. Continue weekly NST BPP. Stop low-dose baby aspirin. GBS today and return in a week OB check Additional Plan Follow Up: 1 Week (obc)
== END 2024-12-31 14:01 | disposition home or self-care (01) ==
LOC: HODSOBC 13:45
PROVIDERS: Supervising Provider Advanced Practice Midwife; Visit Provider Advanced Practice Midwife
DX: O09.893 Supervision of other high risk pregnancies, third trimester (principal); O99.213 Obesity complicating pregnancy, third trimester; Z3A.35 35 weeks gestation of pregnancy; Z36.85 Encounter for antenatal screening for Streptococcus B
CPT/HCPCS: 99215; G0463

== ENCOUNTER 2025-01-05 10:56 | Outpatient (AMB) | payer MEDICAID, SELFPAY ==
[2025-01-05 11:22] VITALS: BP 126/81; PULSE 103; RESP 18; TEMP 36.2; O2SAT 98; BMI 49.2
--- NOTE | 2025-01-05 11:22 | OBCLNT_ITS ---
Vital Signs 01/05/25 11:22 Height 1.5 m Height Method Stated Weight 110.903 kg Weight Measurement Method Standing Scale BMI 49.2 BP 126/81 Blood Pressure Source Automatic Cuff Blood Pressure Location Left Upper Arm Position Sitting Respiration 18 Pulse 103 H Pulse Source Monitor Temp 97.2 F Temp Source Oral Pulse Oximetry (%) 98 Oxygen Delivery Method Room Air Allergies/Home Meds Allergies & Medications Allergies No Known Allergies Allergy (Verified 01/05/25 11:23) Medication Reconciliation aspirin 81 mg tablet,delayed release (Adult Aspirin Regimen) 81 mg PO QDAY #60 tabs 09/17/24 [Rx Confirmed 01/05/25] vitamin-ferrous fumarate 28 mg iron-folic acid 800 mcg tablet ( Vitamins with Minerals) 1 tab PO QDAY #60 tabs 09/17/24 [Rx Confirmed 01/05/25] Intake Visit Data Collection New Patient or Established: Established Patient (seen at [facility] within 3 years) Reason for Visit:: OBC Seen by Clinical Staff ONLY (RN/MA): No 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 Do You Feel Safe at Home: Yes Authorities Contacted: N/A PCP or OBGYN visit in last 3 months: Yes Date of Last PCP or OBGYN visit: 12/31/24 Hx Now: Yes Are you currently on any form of Control: No Pain Present Currently: No Pain Scale Used: Leon-Donis/Numerical Pain scale:: 0 Smoking Status Smoking Status: Never smoker Immunizations Flu Vaccine in the Last 12 Months: No Flu Vaccine Exclusion Criteria: No Exclusion Criteria Questionnaires Covid-19 Vaccine Questionnaire Has patient been vacinated for Covid-19 Have you been vacinated for Covid-19: Yes PHQ-9 PHQ-2 Over the last 2 weeks, how often have you been bothered by any of the following problems? 1. Little interest or pleasure in doing things: not at all 2. Feeling down, depressed, or hopeless: not at all Total score: 0 PHQ-9 3. Trouble falling or staying asleep, or sleeping too much: Not at all 4. Feeling tired or having little energy: Not at all 5. Poor appetite or overeating: Not at all 6. Feeling bad about yourself - or that you are a failure or have let yourself or your family down: Not at all 7. Trouble concentrating on things, such as reading the newspaper or watching television: Not at all 8. Moving or speaking so slowly that other people could have noticed? - Or the opposite - being so fidgety or restless that you have been moving around a lot more than usual: not at all 9. Thoughts that you would be better off or of hurting yourself in some way: Not at all If you checked off any problems, how difficult have these problems made it for you to do your work, take care of things at home, or get along with other people?: not difficult at all Source: Developed by Drs. Asher Lozano, Luciana Khanna, Haris Lawrence and colleagues, with an educational susan from [employer]. 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 Patient has had trouble finding care. Her last period April 25, 2024. She reports her dates. This gives EDC January 29, 2025. Reports good movement. Her last was significant for a small baby. And she had diabetes with her third . Denies social habits. Denies social history. Patient had a lap parvin. Denies any labor complaints. Both her and her partner are happy about the . schedule MFM sono, OB panel, A1c, NIPT and carrier screen today, start PNV and ASA. discuss diet, weight gain, walk, hydrate and PTL precaution. RTC 4 week obc 10/15/24 -?-?-?-?-?-?-?-?-?-?-?-?- 24w 5d 108.919 kg 117/76 absent unknown 24 135 active Reports good movement. Patient denies bleeding. Denies leaking. Denies cramping. Maternal- medicine anatomy scan is scheduled for 2 weeks. No OB complaints . Third trimest er labs scheduled today. Discussed diet and weight. Patient has a maternal- medicine sono's grams scheduled in 2 weeks. Discussed labor precautions. Increase fluids and continue vitamins 11/12/24 -?-?-?-?-?-?-?-?-?-?-?-?- 28w 5d 109.089 kg 137/83 117/76 absent unknown 28 135 active Reports good movement. Denies labor contractions. Denies bleeding. Denies leaking fluid. Continue with GDM diet. Offer Tdap next visit. Increase fluids. Continue prenatals. And keep follow-up appointment in 3 weeks with MFM for growth. Return in 3 weeks OB check 12/03/24 -?-?-?-?-?-?-?-?-?-?-?-?- 31w 5d 110.336 kg 126/81 absent unknown 32 145 active Reports good movement. Denies leaking, bleeding. Reports abdominal pain that comes and goes Reports good movement. Denies leaking, bleeding. Reports abdominal pain that comes and goes.. complains of ligament pain, back ache. difficult to drive due to enlarged abdomen. 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 works in [employer]. f/u sono 01/08 discuss ptl prec aution, discuss diet and weight. increase fluid. TDAP. start disability 12/14/24. Last day of work is 12/13. order maternity belt. rtc 2 week obc 12/17/24 -?-?-?-?-?-?-?-?-?-?-?-?- 33w 5d 110.223 kg 121/81 absent cephalic 34 14 5 active Reports good movement. Denies labor complaints. Denies leaking, bleeding, contractions. Patient reports that she tries to watch her diet and low sugary foods and is very active Schedul e weekly NST BPP. Discussed kick count twice a day. Discussed diet and weight gain. Increase fluids. Keep maternal- medicine appointment June 08, 2024. Return in 2 weeks OB check 12/31/24 -?-?-?-?-?-?-?-?-?-?-?-?- 35w 5d 111.13 kg 126/80 absent cephalic 36 156 active EFW [id number] on 12/10/24. Reports good movement. Occasional contraction and pressure. Denies leaking or bleeding. GBS today. Continue weekly NST BPP. Discussed kick count and labor precautions with parameters. Return in a week OB check 01/05/25 -?-?-?-?-?-?-?-?-?-?-?-?- 36w 3d 110.903 kg 126/81 occasional cephalic 37 156 active Fetus active. Increased pressure and cramping. Denies leaking or bleeding. Schedule patient for induction on January 24, 2025. There was no beds available sooner. Patient has a follow-up [facility] appointment for growth on January 08. Schedule patient with OB for options and related to LGA and previous shoulder dystocia with the last baby. Discussed labor precautions and kick counts and return in a week RUBÉN Calculator Estimated Delivery Date Method Current WG Current Estimate 01/30/25 LMP (Certain) 36w 3d Other Estimates 01/30/25 Ultrasound #1 36w 3d 01/30/25 Ultrasound #2 36w 3d 01/30/25 Manual 36w 3d final rubén: 01/11 04/05,EFW: 63%, ECHO:normal Notes Visit Date: 01/05/25 Last Updated by: Elena Herman CNM 01/05: GBS- Visit Date: 11/12/24 Last Updated by: Elena Herman CNM 3rd tri lab: 1 hr: 132. A1: 5.2, RPR::NR. [facility] sono 10/16/24: IUP: 24w6, 72%. CIRA: 17. normal ECHO Visit Date: 10/15/24 Last Updated by: Elena Herman CNM 10/15/24: 28 yo . LMP 04/25/24. EDC: 01/30/25. OB panel: O+,abs-, rpr;;nr. rub NI, HBSAG-,HIV-,HC-,GC/CT-, NIPT-/girl Office Procedures OBC Clinic LOC & Office Proc's Nursing/Assessment Patient Status: Established Patient OB Clinic Nursing Assessment: Medication Reconciliation, Update PMH in EMR and Vital Signs OB Clinic Coordination of Care: Consent,records obtained, informed consent, Education Simp Pt/Fam, Lab and Imaging orders, Results/Orders obtained and Staff clarify orders Special Needs: Heart tones Established Patient Charge Established Patient Point Assignment: 110 Established Patient Point Charge: EP Level 3 (80-115) Assessment & Plan Diagnosis / Problem List (1) Encounter for supervision of high risk in third trimester, antepartum: Status: Acute Plan Discussed labor precautions and kick count. Discussed GBS results. Scheduled induction for January 24, 2025. Keep MFM appointment January 08 for growth sono. Schedule with OB for options related to morbid obesity and previous shoulder dystocia last . Return in a week with OB Additional Plan Follow Up: 1 Week (obc)
== END 2025-01-05 11:30 | disposition home or self-care (01) ==
PROVIDERS: Supervising Provider Advanced Practice Midwife; Visit Provider Advanced Practice Midwife
DX: O09.893 Supervision of other high risk pregnancies, third trimester (principal); O36.63X0 Maternal care for excessive fetal growth, third trimester, not applicable or unspecified; O09.293 Supervision of pregnancy with other poor reproductive or obstetric history, third trimester; O99.213 Obesity complicating pregnancy, third trimester; E66.01 Morbid (severe) obesity due to excess calories; Z3A.36 36 weeks gestation of pregnancy
CPT/HCPCS: 99213; G0463

== ENCOUNTER 2025-01-21 09:15 | Outpatient (RCR) | payer MEDICAID, SELFPAY ==
--- NOTE | 2024-12-23 09:25 | XR_ITS ---
Examination: Biophysical profile, ultrasound Date and time of exam: December 23, 2024, 0933 hours INDICATIONS: Diagnosis morbid obesity Technique: Multiple transabdominal sonographic images of the pelvis abdomen obtained. Attention is directed to the breathing movement, gross body movement, amniotic fluid volume and tone. Findings: Amniotic fluid index 10.2 cm Total biophysical profile is 8 of 8. breathing movement is 2. Gross body movement is 2. tone is 2. Qualitative amniotic fluid volume is 2 Impression: Biophysical profile is 8 of 8.
[2024-12-23 10:11] VITALS: BP 132/69; PULSE 109; RESP 16; TEMP 37.1
--- NOTE | 2024-12-30 09:23 | XR_ITS ---
Examination: Biophysical profile, ultrasound Date and time of exam: December 30, 2024, 0957 hours INDICATIONS: Diagnosis morbid obesity Technique: Multiple transabdominal sonographic images of the pelvis abdomen obtained. Attention is directed to the breathing movement, gross body movement, amniotic fluid volume and tone. Findings: Amniotic fluid index 18.2 cm Total biophysical profile is 8 of 8. breathing movement is 2. Gross body movement is 2. tone is 2. Qualitative amniotic fluid volume is 2 Impression: Biophysical profile is 8 of 8.
[2024-12-30 10:12] VITALS: BP 135/82; PULSE 88; RESP 20
--- NOTE | 2024-12-30 10:42 | XR_ITS ---
EXAMINATION: age Limited TECHNIQUE: Limited transabdominal sonographic images pelvis INDICATIONS: Diagnosis morbid obesity Date and time: December 30, 2024, 10:54 a.m. FINDINGS: Viable intrauterine gestation in cephalic presentation spine posterior Cervix 4.9 cm Estimated weight 2752 g Cardiac motion 143 bpm Estimated gestational age 35 weeks 3 days IMPRESSION: Viable intrauterine gestation in cephalic presentation Estimated weight 2752 g
--- NOTE | 2025-01-13 09:18 | XR_ITS ---
Examination: Biophysical profile, ultrasound Date and time of exam: 01/13/2025, 9:16 a.m. INDICATION: Weekly NST and BPP due to morbid obesity COMPARISON: Ultrasound 12/30/2024 Technique: Multiple transabdominal sonographic images of the pelvis abdomen obtained. Attention is directed to the breathing movement, gross body movement, amniotic fluid volume and tone. Findings: Single live IUP in cephalic position is reidentified. Total biophysical profile is 8 of 8. breathing movement is 2. Gross body movement is 2. tone is 2. Qualitative amniotic fluid volume is 2 CIRA = 11.8 cm. FHR = 137 bpm. Impression: Biophysical profile is 8 of 8.
[2025-01-13 09:42] VITALS: BP 122/72; PULSE 96; RESP 16; TEMP 37.1
--- NOTE | 2025-01-21 09:28 | XR_ITS ---
Examination: Biophysical profile, ultrasound Date and time of exam: January 21, 2025, 10 0 7:00 a.m. INDICATIONS: Diagnosis morbid obesity Technique: Multiple transabdominal sonographic images of the pelvis abdomen obtained. Attention is directed to the breathing movement, gross body movement, amniotic fluid volume and tone. Findings: Amniotic fluid index 10.7 cm Total biophysical profile is 8 of 8. breathing movement is 2. Gross body movement is 2. tone is 2. Qualitative amniotic fluid volume is 2 Impression: Biophysical profile is 8 of 8.
[2025-01-21 10:24] VITALS: BP 120/63; PULSE 80; RESP 16; TEMP 36.8
== END 2025-01-21 23:59 | disposition home or self-care (01) ==
LOC: S4S1 09:15
PROVIDERS: PCP Family Medicine; Referring Provider Advanced Practice Midwife; Visit Provider Advanced Practice Midwife
DX: O99.212 Obesity complicating pregnancy, second trimester (principal); E66.01 Morbid (severe) obesity due to excess calories; O09.93 Supervision of high risk pregnancy, unspecified, third trimester; O09.43 Supervision of pregnancy with grand multiparity, third trimester; Z3A.38 38 weeks gestation of pregnancy
CPT/HCPCS: 59025; 76815; 76819

== ENCOUNTER 2025-01-22 08:58 | Outpatient (AMB) | payer MEDICAID, SELFPAY ==
[2025-01-22 09:06] VITALS: BP 130/75; PULSE 76; RESP 18; TEMP 36.2; O2SAT 98; BMI 48.6
--- NOTE | 2025-01-22 09:06 | OBCLNT_ITS ---
Vital Signs 01/22/25 09:06 Height 1.5 m Height Method Stated Weight 109.486 kg Weight Measurement Method Standing Scale BMI 48.6 BP 130/75 Blood Pressure Source Automatic Cuff Blood Pressure Location Left Upper Arm Position Sitting Respiration 18 Pulse 76 Pulse Source Monitor Temp 97.2 F Temp Source Oral Pulse Oximetry (%) 98 Oxygen Delivery Method Room Air Allergies/Home Meds Allergies & Medications Allergies No Known Allergies Allergy (Verified 01/22/25 09:07) Medication Reconciliation aspirin 81 mg tablet,delayed release (Adult Aspirin Regimen) 81 mg PO QDAY #60 tabs 09/17/24 [Rx Confirmed 01/22/25] vitamin-ferrous fumarate 28 mg iron-folic acid 800 mcg tablet ( Vitamins with Minerals) 1 tab PO QDAY #60 tabs 09/17/24 [Rx Confirmed 01/22/25] Intake Visit Data Collection New Patient or Established: Established Patient (seen at [facility] within 3 years) Reason for Visit:: OBC Seen by Clinical Staff ONLY (RN/MA): No Correspondent Required: No Do You Feel Safe at Home: Yes Authorities Contacted: N/A PCP or OBGYN visit in last 3 months: Yes Date of Last PCP or OBGYN visit: 01/21/25 Hx Now: Yes Are you currently on any form of Control: No Pain Present Currently: No Pain Scale Used: Leon-Donis/Numerical Pain scale:: 0 Smoking Status Smoking Status: Never smoker Immunizations Flu Vaccine in the Last 12 Months: Yes Flu Vaccine Exclusion Criteria: Already Received Questionnaires Covid-19 Vaccine Questionnaire Has patient been vacinated for Covid-19 Have you been vacinated for Covid-19: Yes PHQ-9 PHQ-2 Over the last 2 weeks, how often have you been bothered by any of the following problems? 1. Little interest or pleasure in doing things: not at all 2. Feeling down, depressed, or hopeless: not at all Total score: 0 PHQ-9 3. Trouble falling or staying asleep, or sleeping too much: Not at all 4. Feeling tired or having little energy: Not at all 5. Poor appetite or overeating: Not at all 6. Feeling bad about yourself - or that you are a failure or have let yourself or your family down: Not at all 7. Trouble concentrating on things, such as reading the newspaper or watching television: Not at all 8. Moving or speaking so slowly that other people could have noticed? - Or the opposite - being so fidgety or restless that you have been moving around a lot more than usual: not at all 9. Thoughts that you would be better off or of hurting yourself in some way: Not at all Total score: 0 If you checked off any problems, how difficult have these problems made it for you to do your work, take care of things at home, or get along with other peopl e?: not difficult at all Source: Developed by Drs. Asher Lozano, Luciana Khanna, Haris Lawrence and colleagues, with an educational susan from [employer]. 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 Patient has had trouble finding care. Her last period April 25, 2024. She reports her dates. This gives EDC January 29, 2025. Reports good movement. Her last was significant for a small baby. And she had diabetes with her third . Denies social habits. Denies social history. Patient had a lap parvin. Denies any labor complaints. Both her and her partner are happy about the . schedule MFM sono, OB panel, A1c, NIPT and carrier screen today, start PNV and ASA. discuss diet, weight gain, walk, hydrate and PTL precaution. RTC 4 week obc 10/15/24 -?-?-?-?-?-?-?-?-?-?-?-?- 24w 5d 108.919 kg 117/76 absent unknown 24 135 active Reports good movement. Patient denies bleeding. Denies leaking. Denies cramping. Maternal- medicine anatomy scan is scheduled for 2 weeks. No OB complaints . Third trimest er labs scheduled today. Discussed diet and weight. Patient has a maternal- medicine sono's grams scheduled in 2 weeks. Discussed labor precautions. Increase fluids and continue vitamins 11/12/24 -?-?-?--?-?-?-?-?-?-?-?-?- 28w 5d 109.089 kg 137/83 117/76 absent unknown 28 135 active Reports good movement. Denies labor contractions. Denies bleeding. Denies leaking fluid. Continue with GDM diet. Offer Tdap next visit. Increase fluids. Continue prenatals. And keep follow-up appointment in 3 weeks with MFM for growth. Return in 3 w eemt OB check 12/03/24 -?-?-?-?-?-?-?-?-?-?-?-?- 31w 5d 110.336 kg 126/81 absent unknown 32 145 active Reports good movement. Denies leaking, bleeding. Reports abdominal pain that comes and goes Reports good movement. Denies leaking, bleeding. Reports abdominal pain that comes and goes.. complains of ligament pain, back ache. difficult to drive due to enlarged abdomen. 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 works in [employer] f/u sono 01/08 discuss ptl prec aution, discuss diet and weight. increase fluid. TDAP. start disability 12/14/24. Last day of work is 12/13. order maternity belt. rtc 2 week obc 12/17/24 -?-?-?-?-?-?-?-?-?-?-?-?- 33w 5d 110.223 kg 121/81 absent cephalic 34 14 5 active Reports good movement. Denies labor complaints. Denies leaking, bleeding, contractions. Patient reports that she tries to watch her diet and low sugary foods and is very active Schedul e weekly NST BPP. Discussed kick count twice a day. Discussed diet and weight gain. Increase fluids. Keep maternal- medicine appointment June 08, 2024. Return in 2 weeks OB check 12/31/24 -?-?-?-?-?-?-?-?-?-?-?-?- 35w 5d 111.13 kg 126/80 absent cephalic 36 156 active EFW 2752 on 12/10/24. Reports good movement. Occasional contraction and pressure. Denies leaking or bleeding. GBS today. Continue weekly NST BPP. Discussed kick count and labor precautions with parameters. Return in a week OB check 01/05/25 -?-?-?-?-?-?-?-?-?-?-?-?- 36w 3d 110.903 kg 126/81 occasional cephalic 37 156 active Fetus active. Increased pressure and cramping. Denies leaking or bleeding. Schedule patient for induction on January 24, 2025. There was no beds available sooner. Patient has a follow-up [facility] appointment for growth on January 08. Schedule patient with OB for options and related to LGA and previous shoulder dystocia with the last baby. Discussed labor precautions and kick counts and return in a week 01/22/25 -?-?-?-?-?-?-?-?-?-?-?-?- 38w 6d 109.486 kg 130/75 occasional cephalic 38 156 active Reports decreased movement today. Occasional contraction and backache. Pressure. Denies leaking or bleeding Joy ent to labor and delivery for NST today. Reviewed kick count with patient labor precautions. Patient scheduled for induction January 24. So we talked about when to call the hospital we return in a week for OB check in case she does not get in for delivery RUBÉN Calculator Estimated Delivery Date Method Current WG Current Estimate 01/30/25 LMP (Certain) 38w 6d Other Estimates 01/30/25 Ultrasound #1 38w 6d 01/30/25 Ultrasound #2 38w 6d 01/30/25 Manual 38w 6d final rubén: 01/11 04/05,EFW: 63%, ECHO:normal Notes Visit Date: 01/22/25 Last Updated by: Elena Herman CNM IOL 01/24/25, sono 01/08/25: EFW: 66%, IUP 36w6 Visit Date: 01/05/25 Last Updated by: Elena Herman CNM 01/05: GBS- Visit Date: 11/12/24 Last Updated by: Elena Herman CNM 3rd tri lab: 1 hr: 132. A1: 5.2, RPR::NR. MFM sono 10/16/24: IUP: 24w6, 72 %. CIRA: 17. normal ECHO Visit Date: 10/15/24 Last Updated by: Elena Herman CNM 10/15/24: 28 yo . LMP 04/25/24. EDC: 01/30/25. OB panel: O+,abs-, rpr;;nr. rub NI, HBSAG-,HIV-,HC-,GC/CT-, NIPT-/girl Office Procedures OBC Clinic LOC & Office Proc's Nursing/Assessment Patient Status: Established Patient OB Clinic Nursing Assessment: Medication Reconciliation, Update PMH in EMR and Vital Signs OB Clinic Coordination of Care: Consent,records obtained, informed consent, Education Simp Pt/Fam, Lab and Imaging orders, Results/Orders obtained and Staff clarify orders Special Needs: Heart tones Established Patient Charge Established Patient Point Assignment: 110 Established Patient Point Charge: EP Level 3 (80-115) Assessment & Plan Diagnosis / Problem List (1) Encounter for supervision of high risk in third trimester, antepartum: Status: Acute (2) Obesity complicating in first trimester: Status: Acute Plan Patient to labor and delivery for NST. Scheduled for induction January 24. We discussed labor precautions and kick count. In the discussed induction on the and what to do. Return in a week in case she does not get in for induction Additional Plan Follow Up: 1 Week (obc)
== END 2025-01-22 09:34 | disposition home or self-care (01) ==
LOC: HODSOBC 08:58
PROVIDERS: Supervising Provider Advanced Practice Midwife; Visit Provider Advanced Practice Midwife
DX: O09.893 Supervision of other high risk pregnancies, third trimester (principal); O99.213 Obesity complicating pregnancy, third trimester; O36.8130 Decreased fetal movements, third trimester, not applicable or unspecified; Z3A.38 38 weeks gestation of pregnancy
CPT/HCPCS: 99213; G0463

== ENCOUNTER 2025-01-22 09:52 | Outpatient (CLI) | payer MEDICAID, SELFPAY ==
[2025-01-22] VITALS (29 sets, daily range): BP systolic 132–177; BP diastolic 71–85; PULSE 72–99; RESP 18–99; TEMP 36.7; O2SAT 93–100; BMI 47.3
[2025-01-22 11:13] LABS: Basophils # (Auto) 0.1 Thou/mm3 (0.0-0.2); Basophils % (Auto) 1 % (0-2.5); Eosinophils # (Auto) 0.2 Thou/mm3 (0.0-0.5); Eosinophils % (Auto) 2 % (0-10); Hematocrit 29.9 % (36.0-46.0); Hemoglobin 9.8 g/dL (12.0-16.0); Immature Granulocytes Auto 0.04 Thou/mm3 (0.00-0.00); Lymphocytes # (Auto) 2.1 Thou/mm3 (1.0-4.8); Lymphocytes % (Auto) 22 % (10-50); Mean Corpuscular HGB Conc 32.8 g/dl (31.0-37.0); Mean Corpuscular Hemoglobin 27.4 pg (25.0-35.0); Mean Corpuscular Volume 84 fL (80-100); Monocytes # (Auto) 0.5 Thou/mm3 (0.0-0.8); Monocytes % (Auto) 5 % (0-12); Neutrophils # (Auto) 6.8 Thou/mm3 (1.8-7.7); Neutrophils % (Auto) 71 % (37-80); Nucleated Red Blood Cell # 0.00 Thou/mm3 (0.00-0.00); Nucleated Red Blood Cell % 0 /100 WBC (0); Platelet Count 214 Thou/mm3 (140-440); RDW Standard Deviation 45.9 fL (36.4-46.3); Red Blood Count 3.58 Miln/mm3 (4.00-5.20); White Blood Count 9.6 Thou/mm3 (3.6-11.0)
[2025-01-22 11:26] LABS: Collection Type, Urine Clean Catch
[2025-01-22 11:29] LABS: Alanine Aminotransferase 10 U/L (10-49); Albumin, Serum 3.9 gm/dL (3.5-5.0); Albumin/Globulin Ratio 1.9 (1.2-2.2); Alkaline Phosphatase 170 U/L (46-116); Anion Gap 9 (7-16); Aspartate Amino Transferase 35 U/L (0-34); BUN/Creatinine Ratio 14 Ratio (12-20); Bilirubin,Total 0.5 mg/dL (0.3-1.2); Blood Urea Nitrogen 7 mg/dL (9-23); Calcium 8.4 mg/dL (8.3-10.6); Calcium (Corrected) 8.5 mg/dL (8.5-10.1); Carbon Dioxide 21.0 mMol/L (20.0-31.0); Chloride 109 mMol/L (98-107); Creatinine (Component) 0.5 mg/dL (0.6-1.3); Estimated Creatinine Clearance 186.9 mL/min (>60); Fibrinogen 512 mg/dL (175-375); Globulin 2.1 gm/dL (2.3-3.5); Glucose 81 mg/dL (74-106); INR 1.0 (0.9-1.3); Osmolality,Calculated 274 (275-295); Partial Thromboplastin Time 25.1 Seconds (22.0-36.0); Potassium 3.8 mMol/L (3.4-5.1); Prothrombin Time 10.6 Seconds (9.0-12.2); Sodium 139 mMol/L (136-145); Total Protein 6.0 gm/dL (5.7-8.2); Uric Acid 4.8 mg/dL (3.1-7.8); eGFR > 60 See Note
[2025-01-22 11:41] LABS: Bacteria,Urine Rare; Bilirubin,Urine Negative (Negative); Blood,Urine Negative (Negative); Budding Yeast,Urine Present; Color,Urine Yellow (Lt Yel-Yel); Glucose, Urine Negative (Negative); Ketones,Urine 1+ (Negative); Leukocyte Esterase,Urine Positive (Negative); Nitrite,Urine Negative (Negative); PH,Urine 6.0 (5.0-7.0); Protein,Urine Negative (Neg - Trace); RBC,Urine 23 /hpf (0-3); Specific Gravity,Urine 1.019 (1.001-1.035); Squamous Epithelial Cell,Urine 16 /hpf (0-5); Urobilinogen,Urine Negative mg/dL (0.0-1.0); WBC,Urine 35 /hpf (0-5)
[2025-01-22 11:43] LABS: Clarity,Urine Hazy (Clear/Hazy)
[2025-01-22 11:44] LABS: Creatinine,Random Urine 107 mg/dL (30-125); Protein Total, Random Urine 22 mg/dL (1-14)
--- NOTE | 2025-01-22 14:29 | ESPR_ITS ---
Documentation for date of: 01/22/25 OB Labor Progress Note Pelvic Exam Amniotic membrane status: Intact Contractions Monitor mode: External Contraction intensity: Mild Status status: Category l Assessment and Plan Comments: Triage Note Debby is a 29yo with SIUP at 38&6wk presenting to L&D from [facility] [place] in clinic for decreased movement, to do NST. She notes that the past two days she has had a great deal of pain related to a cracked tooth that shoots pain up into her face and causes headache. She is taking tylenol for this. She intends to see dentist as a walk in. She notes no painful/regular ctx, no vaginal bleeding, no lof. PMhx/PNC significant for: -BMI 47.4 taking ASA and scheduled for IOL 01/24 -Grandmultiparity -First visit at 20 weeks -anemia ROS negative other than what was described above. Vitals wnl, afebrile General: well developed, well nourished, no acute distress, conversant Cardiac: normal heart rate Lungs: breathing without distress Abdomen: soft, obese, gravid, non-tender, no rebound or guarding Extremities: no edema BLE NST: Reactive, +accels, no decels, mod trent Benedict: no regular ctx pattern Labs: Hgb 9.8 Plt 214 serum creat 0.5 AST 35, ALT wnl urine prot:creat 0.2 UA shows yeast Assessment: Debby is a 29yo with SIUP at 38&6wk now feeling active movement with reactive NST. Had some mild range bp's (likely related to tooth pain), so PIH labs done which are normal. No evidence of GHTN or pre-eclampsia at this time. Blood pressures became normotensive while in triage. Benign exam. Reassuring status. Plan: -Discussed anemia and vulvovaginitis dx with patient -Rx ferrous sulfate 325 mg PO BID and colace 100mg PO BID to pharmacy. Discussed to take iron with some vitamin C/citrus. 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 Take tylenol prn pain. -IOL scheduled 01/24 -Discussed return precautions Marianna Badillo MD
== END 2025-01-22 12:30 | disposition home or self-care (01) ==
LOC: S4S1 09:53 → S4SX 10:05
PROVIDERS: Referring Provider Obstetrics & Gynecology; Visit Provider Advanced Practice Midwife
DX: O36.8130 Decreased fetal movements, third trimester, not applicable or unspecified (principal); Z3A.38 38 weeks gestation of pregnancy
CPT/HCPCS: 36415; 59025; 80053; 81001; 82570; 84156; 84550; 85025; 85384; 85610; 85730

== ENCOUNTER 2025-01-25 11:30 | Inpatient (IN) | payer MEDICAID, SELFPAY ==
[2025-01-25] VITALS (24 sets, daily range): BP systolic 114–161; BP diastolic 60–94; PULSE 77–93; RESP 16–20; TEMP 36.8–36.9; BMI 48.2
--- NOTE | 2025-01-25 13:09 | XR_ITS ---
Examination: Complete OB ultrasound greater than 14 weeks Date and time of exam: January 25, 2025, 1344 hours INDICATIONS: Prelabor induction today, diagnosis maternal obesity Findings: Viable intrauterine single fetus with single amniotic sac presentation Vertex Cardiac motion 131 bpm Placenta fundal grade 3 Umbilical cord insertion seen Amniotic fluid index 19.8 cm spine maternal left Ovaries obscured by the fetus as well as cervix . Composite estimated gestational age based on BPD, head circumference, abdominal circumference, femur length is 38 weeks 6 days Estimated weight 3672.9 g. Survey of intracranial anatomy, spinal anatomy, abdominal anatomy, four-chamber heart performed with no abnormalities identified. Impression: Viable intrauterine gestation in vertex presentation.
[2025-01-25 13:19] LABS: Basophils # (Auto) 0.0 Thou/mm3 (0.0-0.2); Basophils % (Auto) 0 % (0-2.5); Eosinophils # (Auto) 0.2 Thou/mm3 (0.0-0.5); Eosinophils % (Auto) 2 % (0-10); Hematocrit 30.6 % (36.0-46.0); Hemoglobin 10.0 g/dL (12.0-16.0); Immature Granulocytes Auto 0.05 Thou/mm3 (0.00-0.00); Lymphocytes # (Auto) 2.1 Thou/mm3 (1.0-4.8); Lymphocytes % (Auto) 21 % (10-50); Mean Corpuscular HGB Conc 32.7 g/dl (31.0-37.0); Mean Corpuscular Hemoglobin 27.2 pg (25.0-35.0); Mean Corpuscular Volume 83 fL (80-100); Monocytes # (Auto) 0.5 Thou/mm3 (0.0-0.8); Monocytes % (Auto) 5 % (0-12); Neutrophils # (Auto) 7.1 Thou/mm3 (1.8-7.7); Neutrophils % (Auto) 71 % (37-80); Nucleated Red Blood Cell # 0.00 Thou/mm3 (0.00-0.00); Nucleated Red Blood Cell % 0 /100 WBC (0); Platelet Count 235 Thou/mm3 (140-440); RDW Standard Deviation 46.5 fL (36.4-46.3); Red Blood Count 3.68 Miln/mm3 (4.00-5.20); White Blood Count 10.0 Thou/mm3 (3.6-11.0)
[2025-01-25 14:05] LABS: Syphilis Nonreactive (Nonreactive)
[2025-01-25] MEDS: RINGERS LACTATED 1000 ML 1,000 ML 100 ML IV ×2 (14:47→20:18)
--- NOTE | 2025-01-25 15:15 | PC.NURSE ---
Dr Clarke notified via telephone. Pt. had 4 high bp's. 159/90, 153/83, 153/75, and 154/80 within 20 minutes apart. bp one hour ago was 125/76. Orders received to run preeclampsia panel.
[2025-01-25 15:37] LABS: Alanine Aminotransferase 13 U/L (10-49); Albumin, Serum 4.0 gm/dL (3.5-5.0); Albumin/Globulin Ratio 1.8 (1.2-2.2); Alkaline Phosphatase 178 U/L (46-116); Anion Gap 12 (7-16); Aspartate Amino Transferase 43 U/L (0-34); BUN/Creatinine Ratio 18 Ratio (12-20); Bilirubin,Total 0.5 mg/dL (0.3-1.2); Blood Urea Nitrogen 9 mg/dL (9-23); Calcium 8.9 mg/dL (8.3-10.6); Calcium (Corrected) 8.9 mg/dL (8.5-10.1); Carbon Dioxide 19.0 mMol/L (20.0-31.0); Chloride 110 mMol/L (98-107); Creatinine (Component) 0.5 mg/dL (0.6-1.3); Estimated Creatinine Clearance 188.9 mL/min (>60); Globulin 2.2 gm/dL (2.3-3.5); Glucose 78 mg/dL (74-106); Osmolality,Calculated 278 (275-295); Potassium 3.6 mMol/L (3.4-5.1); Sodium 141 mMol/L (136-145); Total Protein 6.2 gm/dL (5.7-8.2); Uric Acid 4.8 mg/dL (3.1-7.8); eGFR > 60 See Note
[2025-01-25 15:41] LABS: Fibrinogen 545 mg/dL (175-375); INR 0.9 (0.9-1.3); Partial Thromboplastin Time 24.3 Seconds (22.0-36.0); Prothrombin Time 10.1 Seconds (9.0-12.2)
[2025-01-25 15:56] LABS: Collection Type, Urine Clean Catch
[2025-01-25 16:14] LABS: Bilirubin,Urine Negative (Negative); Blood,Urine Negative (Negative); Clarity,Urine Clear (Clear/Hazy); Color,Urine Lt-Yellow (Lt Yel-Yel); Glucose, Urine Negative (Negative); Ketones,Urine 1+ (Negative); Leukocyte Esterase,Urine Negative (Negative); Nitrite,Urine Negative (Negative); PH,Urine 6.0 (5.0-7.0); Protein,Urine Negative (Neg - Trace); RBC,Urine 4 /hpf (0-3); Specific Gravity,Urine 1.009 (1.001-1.035); Squamous Epithelial Cell,Urine 1 /hpf (0-5); Urobilinogen,Urine Negative mg/dL (0.0-1.0); WBC,Urine 1 /hpf (0-5)
[2025-01-25 16:25] LABS: Creatinine,Random Urine 37 mg/dL (30-125); Protein Total, Random Urine < 6 mg/dL (1-14)
[2025-01-26] VITALS (21 sets, daily range): BP systolic 104–135; BP diastolic 54–89; PULSE 66–107; RESP 15–20; TEMP 36.4–37; O2SAT 97–100
[2025-01-26] MEDS: TERBUTALINE SULF INJ 1 MG/ML VIAL 0.25 MG SC (03:02)
[2025-01-26] MEDS: ceFAZolin/D5W 2 GM IV 2 GM/100 ML BAG IV (03:05)
[2025-01-26] MEDS: FAMOTIDINE INJ 10 MG/ML VIAL 2 ML 20 MG IV (03:05)
--- NOTE | 2025-01-26 03:49 | PD.GYNPROC ---
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 Identity was confirmed by double identifiers and she was placed on the operating table.? Spinal anesthesia was administered and she was positioned in the supine position.? The abdomen and perineum were prepped in the usual sterile fashion and a Dc catheter was placed to continuous drainage.? Sterile drapes were applied.? The incision site was tested for adequacy of anesthesia.? A Pfannenstiel skin incision was made with a scalpel and carried to the subcutaneous fat up to the rectus fascia.? The rectus fascia was incised on either side of the midline and the incisions were extended bilaterally.? The fascia was gently dissected off the ventral surface of the rectus muscle both superiorly and inferiorly.? The rectus bellies were gently in the midline and the peritoneum was identified and entered bluntly using the surgeon's finger.? The peritoneal opening was now stretched to create an adequate opening for access to the uterus.? German O-ring retractor was placed for adequate visualization.? The anterior surface of the uterus was palpated.? The bladder reflection was identified and a Kadeem Montaño low transverse uterine incision was made in the lower uterine segment taking care to avoid the bladder.? Uterine entry was accomplished bluntly and the opening was stretched to create adequate room.? The amniotic membranes were now ruptured and clear amniotic fluid was released.? The fetus was noted to be in the vertex position.? The head was gently elevated out of the maternal pelvis and the rest of the shoulders and body were delivered by gentle fundal pressure.? Umbilical cord was doubly clamped, divided and the was handed over to the waiting team.? Cord gas samples were obtained.? The placenta was delivered by gentle traction on the umbilical cord.? The interior of the uterus was now thoroughly cleaned of all blood and debris and membranes.? The hysterotomy angles were grasped by a pair of Allis clamps and the hysterotomy was closed using 1 Monocryl suture in 2 layers.? The first layer was used to approximate the muscle in a running locked fashion, the second layer was used to approximate the thickness of the myometrium?and uterine serosa in an imbricated manner.? Once the repair was completed the hysterotomy was inspected and noted to be adequately hemostatic.?? The hysterotomy was once again inspected and hemostasis was noted to be satisfactory.? The German retractor was now removed.? The peritoneal edges were re approximated.? The rectus muscles were re approximated.? The rectus fascia was now repaired using 0 Vicryl suture in a running fashion.? The subcutaneous layer was now copiously irrigated using warm normal saline.? All bleeding points were cauterized using the Bovie.? The subcutaneous fat was closed using 3-0 Vicryl.? The skin was closed using 4-0 Monocryl in a subcuticular fashion.? The skin was cleaned and a sterile dressing was applied.? The patient was now undraped, the abdomen and back were thoroughly cleaned and she was transferred to the recovery room in a stable and awake condition.? The patient tolerated the entire procedure well.? No complications were encountered.? All instrument, sponge and lap counts were correct x2. Estimated blood loss (ml): 650 Complications: none Diagnosis Discharge Diagnosis (1) Placental abruption: Status: Acute (2) delivery delivered: Status: Acute Problem List Completed Was Problem List Reviewed/Reconciled?: Yes
--- NOTE | 2025-01-26 03:52 | PD.LDDELS ---
Data (Nguyen) Data Hx Section: No : 7 Term: 5 : 0 Livin Abortions: Spontaneous & Theraputic: 1 Delivery Data (Nguyen) Delivery Data Delivered by: INDER RABAGO Anesthesia Type Anesthesia type: Spinal
--- NOTE | 2025-01-26 03:54 | ESHP_ITS ---
Documentation for date of: 01/25/25 OB Labor/Induct. HPI History of Present Illness Chief complaint: Induction of labor : 7 Para: 5 Term pregnancies: 5 pregnancies: 0 Living children: 5 History of Abortions: Spontaneous and Elective: 1 History of sections: No History of : No Date of last menstrual period: 04/21/24 RUBÉN: 01/30/25 Gestational Age (weeks): 39 Gestational Age (days): 3 Gestational age based on last menstrual period: 40 History of present illness: Patient is a 29-year-old 7 para 5-0-1-5 at 39 weeks and 3 days who presented to labor and delivery triage for induction of labor due to suspected macrosomia. Patient received care at the [facility] clinic. Patient did not have any complaints at the time of presentation. Specifically she denied any contractions, leakage of fluid or vaginal bleeding and reported adequate movements. Her primary provider was concerned about macrosomia due to a recent ultrasound that showed a estimated weight of 8 pounds while all her previous babies have been in the 6 to low 7 pound range. Labs Labs: Negative: RPR, Hepatitis B, Rubella Titre, HIV, Chlamydia, Gonorrhea and Group Beta Strep and Unknown: Herpes Type 1, Herpes Type 2 and Covid-19 Past Medical History Surgical History SURGICAL: Negative Section Meds Home Medications and Allergies Home Medications ?Medication ?Instructions ?Recorded ?Confirmed ?Type acetaminophen 325 mg tablet (Pain 1,000 mg PO .X1 PRN pain 01/22/25 01/22/25 History Relief (acetaminophen)) Allergies Allergy/AdvReac Type Severity Reaction Status Date / Time dinoprostone (From Cervidil) AdvReac Unknown Difficulty Verified 01/25/25 14:59 Breathing OB Exam Physical Exam Vital signs: Temp Pulse Resp BP Pulse Ox O2 Del Method 98.5 F 84 16 135/68 H 100 Room Air 01/25/25 23:07 01/26/25 03:07 01/25/25 23:07 01/26/25 03:07 01/26/25 03:09 01/25/25 23:07 Constitutional Constitutional: no acute distress Routine HEENT Exam Head: Present normocephalic and atraumatic Eye: Present EOMI and PERRL ENT: Present mucous membranes moist Routine Neck Exam Neck: Present supple and trachea midline Routine Cardiovascular Exam Cardiovascular: Present RRR Routine Abdominal Exam Abdominal: Present soft and normoactive bowel sounds Detailed Labor and Delivery Exam Dilation (cm): 1 Effacement (%): 50 Cervix position: mid station: -4 Consistency: firm Presentation: Vertex Baseline heart rate: 135 monitor accelerations: 15x15 monitor decelerations: None supervisor hardboard variability: Average (6-10) Routine Extremities Exam Extremities: Present full ROM Routine Skin Exam Skin: Present intact, dry and warm Routine Neurological Exam Neurological: Present alert, oriented X3 and CN II-XII intact Routine Psychiatric Exam Psychiatric: Present normal affect and normal thought process OB Results Labs 01/25/25 12:00 01/25/25 12:00 Labs: Short CBC 01/25/25 Range/Units 12:00 WBC 10.0 (3.6-11.0) Thou/mm3 Hgb 10.0 L (12.0-16.0) g/dL Hct 30.6 L (36.0-46.0) % Plt Count 235 (140-440) Thou/mm3 BMP 01/25/25 12:00 Sodium 141 Potassium 3.6 Chloride 110 H Carbon Dioxide 19.0 L BUN 9 Creatinine 0.5 L Glucose 78 Calcium 8.9 Liver Function 01/25/25 Range/Units 12:00 Total Bilirubin 0.5 (0.3-1.2) mg/dL AST 43 H (0-34) U/L ALT 13 (10-49) U/L Alkaline Phosphatase 178 H (46-116) U/L Albumin 4.0 (3.5-5.0) gm/dL Urine 01/25/25 Range/Units 15:48 Urine Color Lt-Yellow (Lt Yel-Yel) Urine Clarity Clear (Clear/Hazy) Urine pH 6.0 (5.0-7.0) Ur Specific [place] 1.009 (1.001-1.035) Urine Protein Negative (Neg - Trace) Urine Glucose (UA) Negative (Negative) OB Assessment & Plan Assessment and Plan (1) macrosomia: Status: Acute (2) Encounter for induction of labor: Status: Acute Assessment and plan: Admit to inpatient status for induction of labor IV access, LR at 125 cc/h, CBC, type and screen, RPR Group B strep negative Patient had an adverse reaction to Cervidil and her previous induction, will start cervical ripening with misoprostol Continuous maternal monitoring Pain management as per protocol, epidural whenever desired (3) Grand multiparity: Status: Acute
[2025-01-26] MEDS: ONDANSETRON INJ 2 MG/ML INJ 2 ML 4 MG IV (04:36)
[2025-01-26] MEDS: KETOROLAC INJ 30 MG/ML VIAL IVP (05:27)
[2025-01-26 05:37] LABS: Basophils # (Auto) 0.0 Thou/mm3 (0.0-0.2); Basophils % (Auto) 0 % (0-2.5); Eosinophils # (Auto) 0.1 Thou/mm3 (0.0-0.5); Eosinophils % (Auto) 1 % (0-10); Hematocrit 26.5 % (36.0-46.0); Immature Granulocytes Auto 0.07 Thou/mm3 (0.00-0.00); Lymphocytes # (Auto) 1.8 Thou/mm3 (1.0-4.8); Lymphocytes % (Auto) 14 % (10-50); Mean Corpuscular HGB Conc 32.5 g/dl (31.0-37.0); Mean Corpuscular Hemoglobin 27.1 pg (25.0-35.0); Mean Corpuscular Volume 84 fL (80-100); Monocytes # (Auto) 0.7 Thou/mm3 (0.0-0.8); Monocytes % (Auto) 6 % (0-12); Neutrophils # (Auto) 10.1 Thou/mm3 (1.8-7.7); Neutrophils % (Auto) 79 % (37-80); Nucleated Red Blood Cell # 0.00 Thou/mm3 (0.00-0.00); Nucleated Red Blood Cell % 0 /100 WBC (0); Platelet Count 198 Thou/mm3 (140-440); RDW Standard Deviation 45.8 fL (36.4-46.3); Red Blood Count 3.17 Miln/mm3 (4.00-5.20); White Blood Count 12.8 Thou/mm3 (3.6-11.0)
[2025-01-26 05:53] LABS: Hemoglobin 8.6 g/dL (12.0-16.0)
[2025-01-26] MEDS: DOCUSATE SOD 100 MG CAPSULE PO (08:30)
[2025-01-26] MEDS: IBUPROFEN TAB 400 MG TABLET 800 MG PO (08:31)
--- NOTE | 2025-01-26 08:35 | ESPR_ITS ---
Subjective Subjective Interval history: Patient is a 29-year-old -0-1-6 status post emergent primary by Dr. Hernandez at approximately 3:00 in the morning 01/26/2025. This morning patient is resting comfortably in bed. The for will was for a suspected abruption. Patient has a Dc catheter in place. BMI is 48 so we will write Lovenox for tomorrow. Exam Vital Signs Temp Pulse Resp BP Pulse Ox O2 Del Method 98.6 F 74 16 123/89 H 99 Room Air 01/26/25 06:10 01/26/25 06:10 01/26/25 06:10 01/26/25 06:05 01/26/25 06:10 01/26/25 06:10 Narrative Exam Patient is alert and oriented x 3 in no apparent distress resting comfortably in bed with Dc catheter in place. About to eat a general diet for breakfast. Objective Labs 01/26/25 05:12 01/25/25 12:00 Labs: Laboratory Results - last 24 hr 01/25/25 01/25/25 01/26/25 12:00 15:48 05:12 WBC 10.0 12.8 H RBC 3.68 L 3.17 L Hgb 10.0 L 8.6 L Hct 30.6 L 26.5 L MCV 83 84 MCH 27.2 27.1 MCHC 32.7 32.5 RDW Std Deviation 46.5 H 45.8 Plt Count 235 198 D Neut % (Auto) 71 79 Lymph % (Auto) 21 14 [place] % (Auto) 5 6 Eos % (Auto) 2 1 Baso % (Auto) 0 0 Neut # (Auto) 7.1 10.1 H Lymph # (Auto) 2.1 1.8 [place] # (Auto) 0.5 0.7 Eos # (Auto) 0.2 0.1 Baso # (Auto) 0.0 0.0 Immature Gran # (Auto) 0.05 H 0.07 H Absolute Nucleated RBC 0.00 0.00 Immature Gran % 1 H 1 H Nucleated RBC % 0 0 PT 10.1 INR 0.9 APTT 24.3 Fibrinogen 545 H Sodium 141 Potassium 3.6 Chloride 110 H Carbon Dioxide 19.0 L Anion Gap 12 BUN 9 Creatinine 0.5 L Estim Creat Clear Calc 188.9 eGFR > 60 BUN/Creatinine Ratio 18 Glucose 78 Calculated Osmolality 278 Uric Acid 4.8 Calcium 8.9 Corrected Calcium 8.9 Total Bilirubin 0.5 AST 43 H ALT 13 Alkaline Phosphatase 178 H Total Protein 6.2 Albumin 4.0 Globulin 2.2 L Albumin/Globulin Ratio 1.8 Ur Collection Type Clean Catch Urine Color Lt-Yellow Urine Clarity Clear Urine pH 6.0 Ur Specific [place] 1.009 Urine Protein Negative Urine Glucose (UA) Negative Urine Ketones 1+ A Urine Blood Negative Urine Nitrite Negative Urine Bilirubin Negative Urine Urobilinogen (Auto) Negative Ur Leukocyte Esterase Negative Urine RBC 4 H Urine WBC 1 Ur Squamous Epith Cells 1 Urine Bacteria None Ur Random Creatinine 37 U Random Total Protein < 6 Syphilis Serology Nonreactive Blood Type O Positive Antibody Screen POSITIVE Antibody Identification Anti-Jka Crossmatch See Detail Blood Bank Wristband ID Yes Assessment & Plan Problem List (1) Placental abruption: Problem details: Patient's status post emergent primary low-transverse section 01/26/2025 around 3 in the morning. She underwent spinal anesthesia. Status: Acute (2) care following delivery: Problem details: Patient is postop day 0 today. Doing well. Recheck hemoglobin tomorrow Status: Acute (3) Morbid obesity with BMI of 45.0-49.9, adult: Problem details: Start Lovenox in the morning. Status: Acute Time Spent With Patient Time: Total time spent is greater than 50% in coordination of care (as documented) at patient's floor/unit and/or counseling patient: Time with patient: less than 15 minutes
[2025-01-26] MEDS: OXYTOCIN in NS 20 units 20 UNIT/1,000 ML BAG 125 UNIT IV (13:18)
[2025-01-26] MEDS: HYDROcodone/APAP 5/325 TABLET 2 TAB PO ×2 (16:15→22:10)
[2025-01-27] VITALS: BP 127/76; PULSE 77; RESP 18; TEMP 36.9; O2SAT 99
[2025-01-27] MEDS: IBUPROFEN TAB 400 MG TABLET 800 MG PO ×2 (00:12→19:59)
[2025-01-27 04:09] VITALS: BP 106/69; PULSE 78; RESP 16; TEMP 36.5; O2SAT 97
[2025-01-27 06:01] LABS: Basophils # (Auto) 0.1 Thou/mm3 (0.0-0.2); Basophils % (Auto) 0 % (0-2.5); Eosinophils # (Auto) 0.2 Thou/mm3 (0.0-0.5); Eosinophils % (Auto) 2 % (0-10); Hematocrit 24.2 % (36.0-46.0); Immature Granulocytes Auto 0.05 Thou/mm3 (0.00-0.00); Lymphocytes # (Auto) 2.5 Thou/mm3 (1.0-4.8); Lymphocytes % (Auto) 22 % (10-50); Mean Corpuscular HGB Conc 32.2 g/dl (31.0-37.0); Mean Corpuscular Hemoglobin 27.5 pg (25.0-35.0); Mean Corpuscular Volume 85 fL (80-100); Monocytes # (Auto) 0.6 Thou/mm3 (0.0-0.8); Monocytes % (Auto) 6 % (0-12); Neutrophils # (Auto) 8.0 Thou/mm3 (1.8-7.7); Neutrophils % (Auto) 70 % (37-80); Nucleated Red Blood Cell # 0.00 Thou/mm3 (0.00-0.00); Nucleated Red Blood Cell % 0 /100 WBC (0); Platelet Count 185 Thou/mm3 (140-440); RDW Standard Deviation 47.7 fL (36.4-46.3); Red Blood Count 2.84 Miln/mm3 (4.00-5.20); White Blood Count 11.4 Thou/mm3 (3.6-11.0)
[2025-01-27 06:12] LABS: Hemoglobin 7.8 g/dL (12.0-16.0)
[2025-01-27] MEDS: HYDROcodone/APAP 5/325 TABLET 2 TAB PO ×3 (07:22→20:58)
[2025-01-27 08:10] VITALS: BP 118/66; PULSE 72; RESP 18; TEMP 36.6; O2SAT 98
[2025-01-27] MEDS: DOCUSATE SOD 100 MG CAPSULE PO (09:07)
[2025-01-27] MEDS: ENOXAPARIN SOD INJ 40 MG/0.4 ML SYRINGE SC (09:07)
--- NOTE | 2025-01-27 09:59 | OBDSUM_ITS ---
Data (Nguyen) Data Hx Section: No : 7 Term: 5 : 0 Livin Abortions: Spontaneous & Theraputic: 1 Delivery Data (Nguyen) Labor Data Initiation of labor: Induction Induction/Augmentation Agent: Cytotec-PO ROM date: 01/26/25 ROM time: 03:29 Amniotic membrane rupture type: Artificial Amniotic fluid description: Clear Delivery Data delivery date: 01/26/25 delivery time: 03:29 Placenta delivery date: 01/26/25 Placenta delivery time: 03:30 Delivered by: INDER RABAGO Delivery nurse: Sara Douglas RN [place] nurse: Lenore Espinosa RN Dumper [employer] at delivery: Yes (Vanna OROZCO) Support person(s) at delivery: FOB Other staff at delivery: Ortiz Stoddard RN, Trey Mercado RN, Michele Martínez SHEET METAL PATTERN CUTTER, [email or web address], [email or web address], Ynes Greenwood CLINICAL OPERATIONS CONSULTANT Delivery Method Delivery method: Low Transverse Presentation: Vertex Anesthesia Type Anesthesia Type: Spinal Anesthesia type: Spinal Placenta Cord blood sent to lab: Yes cord blood collection: Cord Blood Type Episiotomy Episiotomy description: None Umbilical Cord cord description: 3 Vessels Lawrence Data (Nguyen) Lawrence Data order: 1 's gender: Female weight (gms): 3460 g Weight (pounds): 7 lbs and 10.0 ozs 1 minute: 9 5 minutes: 9
--- NOTE | 2025-01-27 09:59 | PD.LDPPPRG ---
Subjective Subjective Interval history: Delivery type: Patient doing well this morning. No acute complaints. Ambulating, tolerating p.o., and voiding without difficulty. HTN/Pre-E screen negative: No CP, SOB, ARMENTA, visual changes, RUQ pain. : Yes Lochia: diminishing Bowel: Flatus + / BM + UOP: Adequate Exam Vital Signs Temp Pulse Resp BP Pulse Ox O2 Del Method 97.8 F 72 18 118/66 98 Room Air 01/27/25 08:10 01/27/25 08:10 01/27/25 08:10 01/27/25 08:10 01/27/25 08:10 01/27/25 08:10 Constitutional Constitutional: no acute distress Routine HEENT Exam Head: Present normocephalic and atraumatic Eye: Present EOMI and PERRL ENT: Present mucous membranes moist Routine Neck Exam Neck: Present supple and trachea midline Routine Respiratory Exam Respiratory: Present chest non-tender, lungs clear, normal breath sounds and no resp distress Routine Cardiovascular Exam Cardiovascular: Present RRR Routine Abdominal Exam Abdominal: Present soft and normoactive bowel sounds Routine Extremities Exam Extremities: Present full ROM Routine Skin Exam Skin: Present intact, dry and warm Routine Neurological Exam Neurological: Present alert, oriented X3 and CN II-XII intact Routine Psychiatric Exam Psychiatric: Present normal affect and normal thought process Objective Labs 01/27/25 05:10 01/25/25 12:00 Labs: Laboratory Results - last 24 hr 01/27/25 05:10 WBC 11.4 H RBC 2.84 L Hgb 7.8 L Hct 24.2 L MCV 85 MCH 27.5 MCHC 32.2 RDW Std Deviation 47.7 H Plt Count 185 Neut % (Auto) 70 Lymph % (Auto) 22 [place] % (Auto) 6 Eos % (Auto) 2 Baso % (Auto) 0 Neut # (Auto) 8.0 H Lymph # (Auto) 2.5 [place] # (Auto) 0.6 Eos # (Auto) 0.2 Baso # (Auto) 0.1 Immature Gran # (Auto) 0.05 H Absolute Nucleated RBC 0.00 Immature Gran % 0 Nucleated RBC % 0 Assessment & Plan Problem List (1) Placental abruption: Status: Acute (2) care following delivery: Status: Acute Assessment and plan: 1. Continue routine /post-op care 2. Labs reviewed, cbc appropriate 3. Remove dressing/Dc 4. Encourage to ambulate, shower 5. Encourage PO intake, breast feeding (3) Morbid obesity with BMI of 45.0-49.9, adult: Status: Acute Time Spent With Patient Time: Total time spent is greater than 50% in coordination of care (as documented) at patient's floor/unit and/or counseling patient:
[2025-01-27 11:20] VITALS: BP 120/80; PULSE 80; RESP 18; TEMP 37; O2SAT 100
[2025-01-27 20:00] VITALS: BP 125/80; PULSE 96; RESP 16; TEMP 36.9; O2SAT 100
[2025-01-28 03:15] VITALS: BP 121/78; PULSE 78; RESP 16; TEMP 37.2; O2SAT 99
[2025-01-28] MEDS: HYDROcodone/APAP 5/325 TABLET 2 TAB PO ×2 (03:31→12:43)
[2025-01-28 08:20] VITALS: BP 119/61; PULSE 88; RESP 18; TEMP 36.6; O2SAT 99
[2025-01-28] MEDS: ENOXAPARIN SOD INJ 40 MG/0.4 ML SYRINGE SC (08:50)
[2025-01-28] MEDS: DOCUSATE SOD 100 MG CAPSULE PO (08:50)
--- NOTE | 2025-01-28 08:58 | PC.NURSE ---
patient declined MMR vaccine,
[2025-01-28] MEDS: IBUPROFEN TAB 400 MG TABLET 800 MG PO (10:16)
--- NOTE | 2025-01-28 11:10 | PD.LDDS ---
DS: Providers Provider Date of admission: 01/25/25 11:30 Primary care physician: Physician No Primary/Family Admitting Provider: Nathan Clarke MD Attending Provider on Admission: Nathan Clarke MD Consults: 01/26/25 04:19 Referral Routine Comment: Attending Provider on DC: Ольга Whitman MD Discharging Provider: Ольга Whitman MD Anticipated date of discharge: 01/28/25 DS: Diagnosis Discharge Diagnosis (1) Morbid obesity with BMI of 45.0-49.9, adult: Status: Acute (2) Grand multiparity: Status: Acute (3) Placental abruption: Status: Acute (4) delivery delivered: Status: Acute Problem List Completed Was Problem List Reviewed/Reconciled?: Yes Summary/Hosp Course Brief History: Patient is a 29-year-old 7 para 5-0-1-5 at 39 weeks and 3 days who presented to labor and delivery triage for induction of labor due to suspected macrosomia. Patient received care at the [facility] CERAMICS TEST ENGINEER clinic. Patient did not have any complaints at the time of presentation. Specifically she denied any contractions, leakage of fluid or vaginal bleeding and reported adequate movements. Her primary provider was concerned about macrosomia due to a recent ultrasound that showed a estimated weight of 8 pounds while all her previous babies have been in the 6 to low 7 pound range. Peripartum Data Delivery Method: Low Transverse Episiotomy Description: None Laceration Description: see Delivery Summary Procedures: Procedures Operation Date: 01/26/25 03:30 Actual Procedure Side Surgeon p in OB Not Applicable Nathan Clarke MD complications: none Status at Discharge Cognitive/behavioral status at discharge: Patient has no/ complaints Headache no Blurry vision no Chest pain no Palpitations no Shortness of breath no Nausea or vomiting or constipation no Back pain no Dysuria no Dizziness no calf pain no She is voiding spontaneously after catheter removal yes Passing flatus yes Lochia minimal yes Functional status at discharge: independent ambulation Time Spent with Patient Time attestation: Total time spent providing and/or coordinating discharge services: Time spent: Less than 30 minutes Exam Vital Signs Temp Pulse Resp BP Pulse Ox O2 Del Method 97.9 F 88 18 119/61 99 Room Air 01/28/25 08:20 01/28/25 08:20 01/28/25 08:20 01/28/25 08:20 01/28/25 08:20 01/28/25 08:20 Narrative Exam alert x3 chest clear CVS RRR NO thromegaly Uterus is nontender Uterus is firm Just below the umbilicus Bowel sounds present Abdomen soft no hernias noted/no CVAT Incision CDI No drainage Appropriately tender No calf tenderness Edema ++ Routine Psychiatric Exam Psychiatric: Present normal affect, normal thought process, cooperative and good judgment Discharge Plan Plan Patient Disposition: HOME (Self Care) Prescriptions/Referrals Prescriptions/Med Rec: New hydrocodone-acetaminophen 5-325 mg Tablet 1 tab PO Q4HR MDD 4 PRN (Reason: Patient rated pain 7 to 8) Qty: 10 0RF Discontinued acetaminophen [Pain Relief (acetaminophen)] 325 mg tablet 1,000 mg PO .X1 PRN (Reason: pain) No Action vit-iron fum-folic ac [ Vitamin with Minerals] 28 mg iron- 800 mcg tablet 1 tab PO QDAY Qty: 60 3RF ferrous sulfate 325 mg (65 mg iron) tablet,delayed release (DR/EC) 325 mg PO BID Qty: 60 0RF docusate sodium [Colace] 100 mg capsule 100 mg PO BID Qty: 60 0RF Referrals: No Primary/Family,Physician [Primary Care Provider] Patient/Caregiver Discharge Instructions Discharge Activity: activity as tolerated Other Discharge Activity Instructions:: pelvic rest x 6 weeks Other Discharge Diet Instructions: diet regular Education Materials: C Section Dc Print Language: [place] Islander Stand Alone Forms: Almaz Award Info., Patient Portal Info Letter, DC from Surgery Discharge Order Discharge Orders: Discharge (Routine); Ordered 01/28/25 Ordered By: Ольга Whitman Planned Discharge Date 01/28/25 (3) Placental abruption Qualifiers: Trimester: third trimester Qualified Code(s): O45.93 - Premature separation of placenta, unspecified, third trimester
== END 2025-01-28 14:35 | disposition home or self-care (01) | DRG 540 ==
LOC: S4SX 11:42 → S4NX 01-26 03:46
PROVIDERS: Obstetrics & Gynecology; Admitting Provider Obstetrics & Gynecology; Visit Provider Obstetrics & Gynecology
PROC: 10D00Z1 Extraction of Products of Conception, Low, Open Approach (ICD-10-PCS; CPT 59514; principal; 2025-01-26 03:15)
DX: O36.63X0 Maternal care for excessive fetal growth, third trimester, not applicable or unspecified (principal); Z37.0 Single live birth; O99.214 Obesity complicating childbirth; E66.01 Morbid (severe) obesity due to excess calories; O45.93 Premature separation of placenta, unspecified, third trimester; Z3A.39 39 weeks gestation of pregnancy
CPT/HCPCS: 36415; 59409; 76805; 80053; 81001; 82570; 84156; 84550; 85025; 85384; 85610; 85730; 86780; 86850; 86870; 86900; 86901; 86921; 86922; 94762; A4217; A4314; A4649; J0689; J1650; J1885; J2250; J2274; J2405; J2590; J3010; J3105; J3490; J7120; A9270; J2270

== ENCOUNTER 2025-02-11 10:55 | Outpatient (AMB) | payer MEDICAID, SELFPAY ==
--- NOTE | 2025-02-11 11:01 | AMBOBPPN_ITS ---
Vital Signs 02/11/25 11:02 Weight 104.383 kg Weight Measurement Method Standing Scale BP 138/73 H Blood Pressure Source Automatic Cuff Blood Pressure Location Left Upper Arm Position Sitting Respiration 18 Pulse 98 Pulse Source Monitor Temp 97.2 F Temp Source Oral Pulse Oximetry (%) 97 Oxygen Delivery Method Room Air Allergies/Home Meds Allergies & Medications Allergies dinoprostone (From Cervidil) Adverse Reaction (Unknown, Verified 01/25/25 14:59) Difficulty Breathing Medication Reconciliation vitamin-ferrous fumarate 28 mg iron-folic acid 800 mcg tablet ( Vitamins with Minerals) 1 tab PO QDAY #60 tabs 09/17/24 [Rx Confirmed 02/11/25] docusate sodium 100 mg capsule (Colace) 100 mg PO BID #60 caps 01/22/25 [Rx Confirmed 02/11/25] ferrous sulfate 325 mg (65 mg iron) tablet,delayed release 325 mg PO BID #60 tabs 01/22/25 [Rx Confirmed 02/11/25] hydrocodone 5 mg-acetaminophen 325 mg tablet 1 tab PO Q4HR PRN Patient rated pain 7 to 8 #10 tabs 01/28/25 [Rx Confirmed 02/11/25] zuranolone 20 mg capsule (Zurzuvae) 40 mg (2 x 20 mg) PO QDAY 14 days #28 caps 02/11/25 [Rx] Intake Visit Data Collection New Patient or Established: Established Patient (seen at [facility] within 3 years) Reason for Visit:: POSTPARRRTUM Seen by Clinical Staff ONLY (RN/MA): No Compliance And Control Analyst Required: No Do You Feel Safe at Home: Yes Authorities Contacted: N/A PCP or OBGYN visit in last 3 months: Yes Date of Last PCP or OBGYN visit: 01/28/25 Hx Now: No Are you currently on any form of Control: No Pain Present Currently: No Pain Scale Used: Leon-Donis/Numerical Pain scale:: 0 Smoking Status Smoking Status: Never smoker Immunizations Flu Vaccine in the Last 12 Months: No Flu Vaccine Exclusion Criteria: No Exclusion Criteria PERFORATOR OPERATOR: Past Medical History Past Medical History: No Hx Neurological Disorders, No Hx Breast Cancer, No Hx Cardiac Disorders, Yes Hx Blood Disorders, Yes Hx Anemia, No Hx Gastrointestinal Disorders, No Hx Renal Disease, No Hx Diabetes Mellitus Type 1 and No Hx Diabetes Mellitus Type 2 Questionnaires Covid-19 Vaccine Questionnaire Has patient been vacinated for Covid-19 Have you been vacinated for Covid-19: No Social History Living Situation History Lives With: Family Housing: Apartment Tobacco History Smoking Status: Never smoker Second Hand Smoke Exposure: No Alcohol History Alcohol Intake: Former Alcohol Intake Frequency: holidays/special occasions only Domestic Abuse History Do You Feel Safe at Home: Yes HPI Interval History: Debby Rodrigues presents with pain and tenderness following a fall approximately 16-17 days post repeat section. She reports falling on stairs while returning from taking one of her children to a doctor's appointment, missing a step while walking up the stairs to her apartment. Since the fall, she has experienced significant soreness and achiness, with particular tenderness right under her stomach area. She is unsure whether the abdominal tenderness is related to the fall or her recent section. She has a history of repeat section on January 27, 2020. The patient denies any bleeding from her scar. She endorses mild nausea but denies vomiting. The patient also reports experiencing symptoms of depression. She lives upstairs in an apartment complex with her children. ROS: General: Positive for body aches and soreness. Gastrointestinal: Positive for mild nausea, negative for vomiting. Psychiatric: Positive for depression symptoms. Exam Narrative Physical exam: - Abdominal: scar appears good on external examination. General General Appearance: alert, in no apparent distress and healthy appearing Head Head exam: atraumatic Neck Neck exam: Present normal inspection and trachea midline Chest Chest inspection: Present normal inspection and symmetric chest wall rise External exam: Present normal external exam; Absent tenderness Neuro Neurological exam: Present oriented X3 Psych Psychiatric exam: Present normal affect and normal mood Office Procedures OBC Clinic LOC & Office Proc's Nursing/Assessment Patient Status: Established Patient OB Clinic Nursing Assessment: Medication Reconciliation, Update PMH in EMR and Vital Signs OB Clinic Coordination of Care: Consent,records obtained, informed consent, Education Simp Pt/Fam, Lab and Imaging orders, Results/Orders obtained and Staff clarify orders Established Patient Charge Established Patient Point Assignment: 80 Established Patient Point Charge: EP Level 3 (80-115) Assessment & Plan Diagnosis / Problem List (1) Injury, poisoning and certain other consequences of external causes complicating the puerperium: Status: Acute (2) Unspecified fall, initial encounter: Status: Acute (3) Morbid obesity with BMI of 45.0-49.9, adult: Status: Acute (4) care following delivery: Status: Acute (5) delivery delivered: Status: Acute (6) depression: Status: Acute Plan Abdominal pain post-fall: - Patient experienced fall on stairs 17 days after repeat section. - Generalized soreness and tenderness below abdomen. - Concern for potential internal injury or surgical site complications. - External incision examination normal without bleeding. Plan: - Order CT scan with stat priority for evaluation of abdominal injury. - Insurance approval process initiated, scan expected within 1-2 days. - Take ibuprofen for pain management. - Maintain adequate hydration. - Return to emergency room immediately if vomiting or bleeding occurs. - Activity restriction with minimal movement until CT scan completed. - Follow-up appointment in [address] scan results and reassessment. depression: - Depression symptoms 17 days after delivery via repeat section. Plan: - Initiate referral for counseling services. - Prescribe new medication described as highly effective, taken for 2 weeks only then discontinued. - Medication delivered via mail-order pharmacy from [facility]. - Insurance and paperwork processing already completed. - Patient education with health educator Dee regarding medication steps. - Follow-up appointment in 2 weeks to assess treatment response.
[2025-02-11 11:02] VITALS: BP 138/73; PULSE 98; RESP 18; TEMP 36.2; O2SAT 97
== END 2025-02-11 11:16 | disposition home or self-care (01) ==
LOC: HODSOBC 10:55
PROVIDERS: Supervising Provider Obstetrics & Gynecology; Visit Provider Obstetrics & Gynecology
DX: Z39.2 Encounter for routine postpartum follow-up (principal); O99.215 Obesity complicating the puerperium; E66.01 Morbid (severe) obesity due to excess calories; O99.345 Other mental disorders complicating the puerperium; F53.0 Postpartum depression; O9A.23 Injury, poisoning and certain other consequences of external causes complicating the puerperium; R10.9 Unspecified abdominal pain; W10.9XXA Fall (on) (from) unspecified stairs and steps, initial encounter; Y92.039 Unspecified place in apartment as the place of occurrence of the external cause
CPT/HCPCS: 99213; G0463

== ENCOUNTER 2025-02-18 21:55 | Emergency (ER) | payer MEDICAID, SELFPAY ==
[2025-02-18 21:56] VITALS: BMI 46.4
[2025-02-18 22:43] VITALS: BP 149/84; PULSE 80; RESP 16; TEMP 37; O2SAT 100
--- NOTE | 2025-02-18 22:50 | EDNOTE_ITS ---
ED Wound/Laceration-RME/HPI General Chief Complaint: Wound/Laceration Stated Complaint: CSECTION WOUND OPENING AND DRAINING 01/26 Time Seen by Provider: 02/18/25 22:50 Source: patient Arrival date/time: 02/18/25 21:55 29-year-old female presents to the ED with a complaint of bleeding from her C- section incision x 2 days. Her occurred on January 26. Denies any other complaints. Patient is having vaginal bleeding and using pads to 1 pad per day. Mode of arrival: ambulatory Limitations: no limitations RME / HPI Onset (ago): day(s) (2 days) Location: other () Place: home Context: other (Surgical incision) Associated symptoms: none Related Data Previous Rx's ?Medication ?Instructions ?Recorded vitamin-ferrous fumarate 1 tab PO QDAY #60 ta bs 09/17/24 28 mg iron-folic acid 800 mcg tablet ( Vitamins with Minerals) docusate sodium 100 mg capsule 100 mg PO BID #60 caps 01/22/25 (Colace) ferrous sulfate 325 mg (65 mg 325 mg PO BID #60 tabs 1 03/24/24 iron) tablet,delayed release hydrocodone 5 mg-acetaminophen 325 1 tab PO Q4HR PRN P atient rated 01/28/25 mg tablet pain 7 to 8 #10 tabs zuranolone 20 mg capsule (Zurzuvae) 40 mg (2 x 20 mg) PO QDAY 14 days 02/11/25 #28 caps Allergies Allergy/AdvReac Type Severity Reaction Status Date / Time dinoprostone (From Cervidil) AdvReac Unknown Difficulty Verified 01/25/25 14:59 Breathing ED Exam Narrative Physical exam: At the area of the there appears to be no bleeding and the wound appears to be healing and healing well. No apparent infectious process taking place. General Limitations: Present no limitations General appearance: Present alert and in no apparent distress Head Head exam: Present atraumatic Eye Eye exam: Present normal appearance Neck Neck exam: Present normal inspection Chest Chest inspection: Present normal inspection Abdominal Exam Abdominal exam: Present soft and tenderness (There is mild tenderness to palpation at the area of the . Note that there is no apparent infectious process taking place and there is no free blood or free purulence present.) Rectal Exam Rectal exam: Present deferred External exam: Present normal external exam Extremities Exam Extremities exam: Present normal inspection and full ROM Back Exam Back exam: Present normal inspection and full ROM Neurological Exam Neurological exam: Present alert and oriented X3 Psychiatric Psychiatric exam: Present normal affect and normal mood Skin Skin exam: Present warm, dry, intact and normal color Course Course Course Narrative: The dressing will be removed and the wound will be examined. 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 Patient data External records reviewed:: Other (specify) Clinical information provided by:: patient and none Social determinants that could affect healthcare access:: none Patient has the following chronic illnesses:: NA How is presenting disease/condition affected by chronic disease/condition?: no chronic disease Evaluation data The following diagnostics were reviewed and interpreted by me:: other (specify) (NA) Lab and/or radiology exams considered but not ordered:: NA Interpretation Summary: Residual bleeding at the area of the . Medications / Prescriptions Medications or Prescriptions considered but not ordered:: NA Medication administrations:: NA Consultations Consultation(s) initiated? (list below): No Diagnosis Wound Differential Diagnosis: laceration, abscess, abrasion and avulsion of skin Most likely diagnosis given after review of the tests above:: Residual bleeding status post Admission Indicated Admission indicated?: not indicated Admission Request Was there a request for admission?: No Admission Attestation Admission request attestation: . Disposition Plan Disposition Plan: Discharge Discharge Attestation Discharge Attestation: The patient and all family members were given an opportunity to ask questions and understood the discharge instructions. Discharge instructions specifically effects, indications for sooner follow up or return to the emergency department, and the expected course of current diagnosis. Patient condition: Stable Discharge Plan Plan Patient Disposition: HOME (Self Care) Discharge Disposition comment: Discharge no apparent distress Patient condition on transfer: Stable Prescriptions/Referrals Prescriptions/Med Rec: No Action vit-iron fum-folic ac [ Vitamin with Minerals] 28 mg iron- 800 mcg tablet 1 tab PO QDAY Qty: 60 3RF Zurzuvae 20 mg capsule 40 mg PO QDAY 14 Days Qty: 28 0RF Rx Instructions: administer with a high fat meal ferrous sulfate 325 mg (65 mg iron) tablet,delayed release (DR/EC) 325 mg PO BID Qty: 60 0RF docusate sodium [Colace] 100 mg capsule 100 mg PO BID Qty: 60 0RF hydrocodone-acetaminophen 5-325 mg Tablet 1 tab PO Q4HR MDD 4 PRN (Reason: Patient rated pain 7 to 8) Qty: 10 0RF Problem List Clinical Impression: Visit for wound check Patient/Caregiver Discharge Instructions Discharge Activity: activity as tolerated Education Materials: ED Wound Care Print Language: Camb[place]ian Stand Alone Forms: Almaz Award Info., Patient Portal Info Letter PA/BLASTING GANG MINER Supervising Physician PA/BLASTING GANG MINER Supervising Physician: MILLER
== END 2025-02-18 23:29 | disposition home or self-care (01) ==
LOC: SERX 02-19 02:15
PROVIDERS: Emergency Provider Emergency Medicine; PCP Family Medicine
DX: O90.89 Other complications of the puerperium, not elsewhere classified (principal)
CPT/HCPCS: 99281

== ENCOUNTER 2025-02-20 10:36 | Outpatient (AMB) | payer MEDICAID, SELFPAY ==
[2025-02-20 10:54] VITALS: BP 129/82; PULSE 82; RESP 16; TEMP 36.6; O2SAT 98; BMI 46.1
--- NOTE | 2025-02-20 10:54 | GYNCLNT_ITS ---
Vital Signs 02/20/25 10:54 Height 1.5 m Height Method Stated Weight 103.873 kg Weight Measurement Method Standing Scale BMI 46.1 BP 129/82 Blood Pressure Source Automatic Cuff Blood Pressure Location Left Upper Arm Position Sitting Respiration 16 Pulse 82 Pulse Source Monitor Temp 97.9 F Temp Source Oral Pulse Oximetry (%) 98 Oxygen Delivery Method Room Air Allergies/Home Meds Allergies & Medications Allergies dinoprostone (From Cervidil) Adverse Reaction (Unknown, Verified 02/20/25 10:54) Difficulty Breathing Medication Reconciliation vitamin-ferrous fumarate 28 mg iron-folic acid 800 mcg tablet ( Vitamins with Minerals) 1 tab PO QDAY #60 tabs 09/17/24 [Rx Confirmed 02/20/25] docusate sodium 100 mg capsule (Colace) 100 mg PO BID #60 caps 01/22/25 [Rx Confirmed 02/20/25] ferrous sulfate 325 mg (65 mg iron) tablet,delayed release 325 mg PO BID #60 tabs 01/22/25 [Rx Confirmed 02/20/25] hydrocodone 5 mg-acetaminophen 325 mg tablet 1 tab PO Q4HR PRN Patient rated pain 7 to 8 #10 tabs 01/28/25 [Rx Confirmed 02/20/25] zuranolone 20 mg capsule (Zurzuvae) 40 mg (2 x 20 mg) PO QDAY 14 days #28 caps 02/11/25 [Rx Confirmed 02/20/25] amoxicillin 875 mg-potassium clavulanate 125 mg tablet 1 tab PO BID 7 days #14 tabs 02/20/25 [Rx] Intake Visit Data Collection New Patient or Established: Established Patient (seen at [facility] within 3 years) Reason for Visit:: POSSIBLE C SECTION INFECTION Seen by Clinical Staff ONLY (RN/MA): No Flower Maker Required: No Do You Feel Safe at Home: Yes Authorities Contacted: N/A PCP or OBGYN visit in last 3 months: Yes Hx Now: No Are you currently on any form of Control: No Pain Present Currently: Yes Pain Location: Abdomen (LOWER ) Pain Scale Used: Leon-Donis/Numerical Pain scale:: 4 Smoking Status Smoking Status: Never smoker Immunizations Flu Vaccine in the Last 12 Months: Yes Flu Vaccine Exclusion Criteria: Already Received 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 Menstrual regularity: regular Flow: heavy Monthly: Yes How many days does period last: 6 Age at menarche: 12 Currently sexually active: No If not currently sexually active, have you ever been sexually active: Yes HEALTH EDUCATION DIRECTOR: Past Medical History Past Medical History: No Hx Neurological Disorders, No Hx Breast Cancer, No Hx Cardiac Disorders, Yes Hx Blood Disorders, Yes Hx Anemia, No Hx Gastrointestinal Disorders, No Hx Renal Disease, No Hx Diabetes Mellitus Type 1 and No Hx Diabetes Mellitus Type 2 Questionnaires Covid-19 Vaccine Questionnaire Has patient been vacinated for Covid-19 Have you been vacinated for Covid-19: Yes PHQ-9 PHQ-2 Over the last 2 weeks, how often have you been bothered by any of the following problems? 1. Little interest or pleasure in doing things: not at all 2. Feeling down, depressed, or hopeless: not at all Total score: 0 PHQ-9 3. Trouble falling or staying asleep, or sleeping too much: Not at all 4. Feeling tired or having little energy: Not at all 5. Poor appetite or overeating: Not at all 6. Feeling bad about yourself - or that you are a failure or have let yourself or your family down: Not at all 7. Trouble concentrating on things, such as reading the newspaper or watching television: Not at all 8. Moving or speaking so slowly that other people could have noticed? - Or the opposite - being so fidgety or restless that you have been moving around a lot more than usual: not at all 9. Thoughts that you would be better off or of hurting yourself in some way: Not at all Total score: 0 Source: Developed by Drs. Asher Lozano, Luciana Khanna, Haris Lawrence and colleagues, with an educational susan from [employer] Depression screen completed yes Social History Living Situation History Lives With: Family Housing: Apartment Tobacco History Smoking Status: Never smoker Second Hand Smoke Exposure: No Alcohol History Alcohol Intake: Former Alcohol Intake Frequency: holidays/special occasions only Domestic Abuse History Do You Feel Safe at Home: Yes History of Present Illness HPI Narrative Debby Rodrigues presents with drainage and pain from her incision over the past several days, approximately 4 weeks status post section performed on January 26, 2025. She initially noticed clear drainage from the incision that was not concerning to her. She then developed crampy abdominal pain and tenderness under her stomach area. Upon re-examining her incision, she observed that the drainage had changed to blood with discharge. The patient experienced worsening pain including back pain and generalized discomfort, prompting her to visit the emergency room late Sunday night 2 days prior to current visit. At the emergency room, the physician examined the incision by removing her gauze dressing and reported that everything looked dry with no active drainage. No antibiotics were prescribed and no additional testing such as ultrasound was performed. The patient reported that the incision was not actively draining at that moment because she had already drained it prior to the examination. She has a history of section on January 26, 2025. Currently, the patient continues to have drainage from a small opening in her incision site, which she covers with gauze. The area remains tender to touch. She is not . She is a 29-year-old female with an obstetric history of G1 T1 L1. She is currently 4 weeks following delivery on January 26, 2025. ROS: Musculoskeletal: Positive for back pain. Negative except as stated above, limited to HEALTH EDUCATION DIRECTOR and pertinent complaints. Exam Narrative Physical exam: - Abdominal: incision with very tiny opening present. Small amount of liquid drainage expressed with palpation. Tenderness noted with palpation of incision site. General General Appearance: alert, in no apparent distress and healthy appearing Head Head exam: atraumatic Neck Neck exam: Present normal inspection and trachea midline Chest Chest inspection: Present normal inspection and symmetric chest wall rise External exam: Present normal external exam; Absent tenderness Neuro Neurological exam: Present oriented X3 Psych Psychiatric exam: Present normal affect and normal mood Office Procedures OBC Clinic LOC & Office Proc's Nursing/Assessment Patient Status: Established Patient OB Clinic Nursing Assessment: Medication Reconciliation, Update PMH in EMR and Vital Signs OB Clinic Coordination of Care: Complex Care and Chronic Disease 1-5, Consent,records obtained, informed consent, Education Simp Pt/Fam, 1 Ins Authorization, Lab and Imaging orders, Results/Orders obtained and Staff clarify orders Miscellaneous Interventions: Dressing placement or removal Established Patient Charge Established Patient Point Assignment: 140 Established Patient Point Charge: EP Level 4 (120-155) Assessment & Plan Diagnosis / Problem List (1) wound infection: Status: Acute (2) Unspecified fall, initial encounter: Status: Acute Plan Section Incision Drainage: - 4 weeks status post section with incision site drainage. - Progression from clear to bloody discharge with associated pain and tenderness. - Physical examination reveals small opening in incision with expressible liquid drainage. - Contributing factors include recent surgical delivery and potential wound healing complications. Plan: - Prescribe antibiotic therapy for 7 days for suspected wound infection. - Patient to wear compression binder belt to prevent fluid collection. - Educate patient on wound care and monitoring: ? Monitor for signs of worsening infection ? Keep incision clean and dry ? Report increased drainage, fever, or worsening pain - Consider drainage procedure if conservative measures fail: ? Wound drainage and irrigation ? Culture if indicated ? Risks, benefits, and alternatives reviewed - Schedule follow-up in 1 week to assess response to antibiotic treatment and wound healing.
== END 2025-02-20 11:01 | disposition home or self-care (01) ==
LOC: HODSOBC 10:36
PROVIDERS: Supervising Provider Obstetrics & Gynecology; Visit Provider Obstetrics & Gynecology
DX: O86.00 Infection of obstetric surgical wound, unspecified (principal)
CPT/HCPCS: 99214; G0463

== ENCOUNTER → 2025-02-20 | Outpatient (CLI) | payer MEDICAID, SELFPAY ==
[2025-02-20 12:22] LABS: HCG Qualitative,Urine Negative
--- NOTE | 2025-02-20 12:40 | XR_ITS ---
Examination: CT abdomen and pelvis without contrast. Coronal 3-D reconstructions. Sagittal 2-D reconstructions. Date and time of exam: February 20, 2025, 1301 hours INDICATIONS: Recent fall post , lower abdominal pain CTDI: vol (mGy): 14.9 DLP: (mGycm): 860 Technique: Axial images of the abdomen have been obtained, 3 mm slice thickness Intravenous contrast material has not been administered. Low dose protocols were performed. One or more of the following dose reduction techniques were used; automated exposure control, adjustment of the mA and/or KV according to patient size, use of iterative reconstruction technique. Findings: Fatty infiltration throughout the liver, no focal liver or splenic lesions Absent gallbladder No pancreatic or adrenal mass Bilateral renal calculi 1 to 3 mm, no hydronephrosis or ureteral calculi Normal appendix 13 mm fat-containing umbilical hernia enlarged uterus No abdominal or pelvic hematoma Urinary bladder wall is thickened up to 12 mm No anterior pelvic wall hematoma Ayaan structures intact IMPRESSION: Fatty infiltration throughout the liver Bilateral nonobstructing renal calculi Normal appendix 13 mm fat-containing umbilical hernia No abdominal or pelvic hematoma Urinary bladder wall thickening, consider cystitis
== END | disposition home or self-care (01) ==
PROVIDERS: Referring Provider Obstetrics & Gynecology; Visit Provider Obstetrics & Gynecology
DX: K76.0 Fatty (change of) liver, not elsewhere classified (principal); N20.0 Calculus of kidney; K42.9 Umbilical hernia without obstruction or gangrene; N32.89 Other specified disorders of bladder; O9A.23 Injury, poisoning and certain other consequences of external causes complicating the puerperium; S39.91XA Unspecified injury of abdomen, initial encounter; W19.XXXA Unspecified fall, initial encounter; Z39.2 Encounter for routine postpartum follow-up
CPT/HCPCS: 74176; 81025

== ENCOUNTER 2025-02-24 12:59 | Outpatient (AMB) | payer MEDICAID, SELFPAY ==
--- NOTE | 2025-02-24 13:06 | AMB.GYNCLNOT ---
Vital Signs 02/24/25 13:07 Height 1.5 m Height Method Stated Weight 102.569 kg Weight Measurement Method Standing Scale BMI 45.6 BP 142/83 H Blood Pressure Source Automatic Cuff Blood Pressure Location Left Upper Arm Position Sitting Respiration 18 Pulse 95 Pulse Source Monitor Temp 97.2 F Temp Source Oral Pulse Oximetry (%) 98 Oxygen Delivery Method Room Air Allergies/Home Meds Allergies & Medications Allergies dinoprostone (From Cervidil) Adverse Reaction (Unknown, Verified 03/03/25 13:32) Difficulty Breathing Medication Reconciliation vitamin-ferrous fumarate 28 mg iron-folic acid 800 mcg tablet ( Vitamins with Minerals) 1 tab PO QDAY #60 tabs 09/17/24 [Rx Confirmed 03/03/25] docusate sodium 100 mg capsule (Colace) 100 mg PO BID #60 caps 01/22/25 [Rx Confirmed 03/03/25] ferrous sulfate 325 mg (65 mg iron) tablet,delayed release 325 mg PO BID #60 tabs 01/22/25 [Rx Confirmed 03/03/25] hydrocodone 5 mg-acetaminophen 325 mg tablet 1 tab PO Q4HR PRN Patient rated pain 7 to 8 #10 tabs 01/28/25 [Rx Confirmed 03/03/25] cephalexin 500 mg capsule 500 mg PO QID 10 days #40 caps 03/03/25 [Rx] clindamycin phosphate 1 % lotion 1 applic topical QDAY 14 days #60 mL 03/03/25 [Rx] escitalopram oxalate 10 mg tablet 10 mg PO QDAY 90 days #90 tabs 03/09/25 [Rx] Intake Visit Data Collection New Patient or Established: Established Patient (seen at [facility] within 3 years) Reason for Visit:: MRI RESULTS Seen by Clinical Staff ONLY (RN/MA): No 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 Required: No Do You Feel Safe at Home: Yes Authorities Contacted: N/A PCP or OBGYN visit in last 3 months: Yes Date of Last PCP or OBGYN visit: 02/20/25 Hx Now: No Are you currently on any form of Control: No Pain Present Currently: No Pain Scale Used: Leon-Donis/Numerical Pain scale:: 0 Smoking Status Smoking Status: Never smoker Immunizations Flu Vaccine in the Last 12 Months: Yes Flu Vaccine Exclusion Criteria: Already Received 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 Menstrual regularity: regular Flow: normal Monthly: Yes Age at menarche: 12 Menopausal: No Currently sexually active: Yes APPLICATIONS SPECIALIST: Past Medical History Past Medical History: No Hx Neurological Disorders, No Hx Breast Cancer, No Hx Cardiac Disorders, Yes Hx Blood Disorders, Yes Hx Anemia, No Hx Gastrointestinal Disorders, No Hx Renal Disease, No Hx Diabetes Mellitus Type 1 and No Hx Diabetes Mellitus Type 2 Questionnaires Covid-19 Vaccine Questionnaire Has patient been vacinated for Covid-19 Have you been vacinated for Covid-19: Yes PHQ-9 PHQ-2 Over the last 2 weeks, how often have you been bothered by any of the following problems? 1. Little interest or pleasure in doing things: not at all 2. Feeling down, depressed, or hopeless: not at all Total score: 0 PHQ-9 3. Trouble falling or staying asleep, or sleeping too much: Not at all 4. Feeling tired or having little energy: Not at all 5. Poor appetite or overeating: Not at all 6. Feeling bad about yourself - or that you are a failure or have let yourself or your family down: Not at all 7. Trouble concentrating on things, such as reading the newspaper or watching television: Not at all 8. Moving or speaking so slowly that other people could have noticed? - Or the opposite - being so fidgety or restless that you have been moving around a lot more than usual: not at all 9. Thoughts that you would be better off or of hurting yourself in some way: Not at all Total score: 0 If you checked off any problems, how difficult have these problems made it for you to do your work, take care of things at home, or get along with other people?: not difficult at all Source: Developed by Drs. Asher Lozano, Luciana Khanna, Haris Lawrence and colleagues, with an educational susan from [employer]. Depression screen completed yes Social History Living Situation History Marital Status: Single Lives With: Family Housing: Apartment Tobacco History Smoking Status: Never smoker Second Hand Smoke Exposure: No Alcohol History Alcohol Intake: Former Alcohol Intake Frequency: holidays/special occasions only Domestic Abuse History Do You Feel Safe at Home: Yes History of Present Illness HPI Narrative Debby Rodrigues presents for follow-up of an abscess that developed after a recent fall. The patient reports that she developed what she believes to be an abscess following her fall, for which she was previously prescribed antibiotics. She states that the abscess popped but describes it as not as like a really big hole, with some liquid drainage and bleeding. The patient confirms she is continuing to take the prescribed antibiotics as directed. She reports that bleeding occurred from the site, which she notes along with the drainage. The patient has been taking antibiotics as prescribed, which she reports still taking. - CT scan: No abnormalities, no fluid collection, no hematoma Exam Narrative Physical exam: - Skin: Abscess noted with evidence of spontaneous drainage. Area packed with gauze packing material. Office Procedures OBC Clinic LOC & Office Proc's Nursing/Assessment Patient Status: Established Patient OB Clinic Nursing Assessment: Medication Reconciliation, Update PMH in EMR and Vital Signs OB Clinic Coordination of Care: Education Complex Pt/Fam, Consent,records obtained, informed consent, Lab and Imaging orders, Results/Orders obtained and Staff clarify orders Established Patient Charge Established Patient Point Assignment: 85 Established Patient Point Charge: EP Level 3 (80-115) Assessment & Plan Diagnosis / Problem List (1) Hematoma of obstetric wound: Status: Acute (2) wound infection: Status: Acute Plan Wound packing done. Prophylactic antibiotics Return in 2 weeks
[2025-02-24 13:07] VITALS: BP 142/83; PULSE 95; RESP 18; TEMP 36.2; O2SAT 98; BMI 45.6
== END 2025-02-24 13:28 | disposition home or self-care (01) ==
LOC: HODSOBC 12:59
PROVIDERS: Supervising Provider Obstetrics & Gynecology; Visit Provider Obstetrics & Gynecology
DX: O86.00 Infection of obstetric surgical wound, unspecified (principal)
CPT/HCPCS: 99213; G0463

== ENCOUNTER 2025-03-03 13:25 | Outpatient (AMB) | payer MEDICAID, SELFPAY ==
--- NOTE | 2025-03-03 13:26 | AMB.GYNCLNOT ---
Vital Signs 03/03/25 13:31 Height 1.5 m Height Method Stated Weight 103.646 kg Weight Measurement Method Standing Scale BMI 46.0 BP 140/82 H Blood Pressure Source Automatic Cuff Blood Pressure Location Left Upper Arm Position Sitting Respiration 18 Pulse 90 Pulse Source Monitor Temp 97.2 F Temp Source Oral Pulse Oximetry (%) 98 Oxygen Delivery Method Room Air Allergies/Home Meds Allergies & Medications Allergies dinoprostone (From Cervidil) Adverse Reaction (Unknown, Verified 03/03/25 13:32) Difficulty Breathing Medication Reconciliation vitamin-ferrous fumarate 28 mg iron-folic acid 800 mcg tablet ( Vitamins with Minerals) 1 tab PO QDAY #60 tabs 09/17/24 [Rx Confirmed 03/03/25] docusate sodium 100 mg capsule (Colace) 100 mg PO BID #60 caps 01/22/25 [Rx Confirmed 03/03/25] ferrous sulfate 325 mg (65 mg iron) tablet,delayed release 325 mg PO BID #60 tabs 01/22/25 [Rx Confirmed 03/03/25] hydrocodone 5 mg-acetaminophen 325 mg tablet 1 tab PO Q4HR PRN Patient rated pain 7 to 8 #10 tabs 01/28/25 [Rx Confirmed 03/03/25] cephalexin 500 mg capsule 500 mg PO QID 10 days #40 caps 03/03/25 [Rx] clindamycin phosphate 1 % lotion 1 applic topical QDAY 14 days #60 mL 03/03/25 [Rx] Intake Visit Data Collection New Patient or Established: Established Patient (seen at [facility] within 3 years) Reason for Visit:: WOUND CHECK Seen by Clinical Staff ONLY (RN/MA): No 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 Cutter 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 Required: No Do You Feel Safe at Home: Yes Authorities Contacted: N/A PCP or OBGYN visit in last 3 months: Yes Date of Last PCP or OBGYN visit: 02/24/25 Hx Now: No Are you currently on any form of Control: No Pain Present Currently: No Pain Scale Used: Leon-Donis/Numerical Pain scale:: 0 Smoking Status Smoking Status: Never smoker Immunizations Flu Vaccine in the Last 12 Months: Yes Flu Vaccine Exclusion Criteria: Already Received Electronic Health Records Specialist history Electronic Health Records Specialist History Menstrual regularity: regular Flow: normal Monthly: Yes Age at menarche: 12 Menopausal: No Currently sexually active: No 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 1. Little interest or pleasure in doing things: not at all 2. Feeling down, depressed, or hopeless: not at all Total score: 0 PHQ-9 3. Trouble falling or staying asleep, or sleeping too much: Not at all 4. Feeling tired or having little energy: Not at all 5. Poor appetite or overeating: Not at all 6. Feeling bad about yourself - or that you are a failure or have let yourself or your family down: Not at all 7. Trouble concentrating on things, such as reading the newspaper or watching television: Not at all 8. Moving or speaking so slowly that other people could have noticed? - Or the opposite - being so fidgety or restless that you have been moving around a lot more than usual: not at all 9. Thoughts that you would be better off or of hurting yourself in some way: Not at all Total score: 0 If you checked off any problems, how difficult have these problems made it for you to do your work, take care of things at home, or get along with other people?: not difficult at all Source: Developed by Drs. Asher Lozano, Luciana Khanna, Hrais Lawrence and colleagues, with an educational susan from [employer]. Depression screen completed yes Social History Living Situation History Marital Status: Lives With: Family Housing: Apartment Tobacco History Smoking Status: Never smoker Second Hand Smoke Exposure: No Alcohol History Alcohol Intake: Former Alcohol Intake Frequency: holidays/special occasions only Domestic Abuse History Do You Feel Safe at Home: Yes History of Present Illness HPI Narrative Debby Rodrigues presents for follow-up visit with wound packing in place that is causing significant pain. The patient reports that the area is very, very painful. She has been changing the tape covering the wound site as instructed and completed her course of antibiotics today, with one final dose remaining. The patient reports that her baby is doing well. She has a recent surgical procedure with packing placement. The patient has delivered a baby girl who is currently doing well with recent delivery and wound care being managed. She has been maintaining wound care as directed and demonstrates good treatment adherence with her antibiotic regimen. The patient has been taking antibiotics with today being the last day of the current course. The packing was removed during the current visit. She expresses concern about the significant pain from the wound packing but reports good adherence to wound care instructions. ROS: Negative except as stated above, limited to FONDANT COOKER and pertinent complaints. Exam Narrative Physical exam: - Skin: Wound site examined with packing removed. Small gap present at packing removal site. Clear discharge noted from wound area. Office Procedures OBC Clinic LOC & Office Proc's Nursing/Assessment Patient Status: Established Patient OB Clinic Nursing Assessment: Medication Reconciliation, Update PMH in EMR and Vital Signs OB Clinic Coordination of Care: Complex Care and Chronic Disease 1-5, Consent,records obtained, informed consent, Education Simp Pt/Fam, Lab and Imaging orders, Results/Orders obtained and Staff clarify orders Established Patient Charge Established Patient Point Assignment: 105 Established Patient Point Charge: EP Level 3 (80-115) Assessment & Plan Diagnosis / Problem List (1) Hematoma of obstetric wound: Status: Acute Plan Wound with Packing: - Packing successfully removed during visit with wound healing appropriately. - Small intentional gap where packing was removed, expected to fill in from inside. - Patient reports significant pain with clear discharge noted, normal for this stage of healing. - Patient completed initial antibiotic course today. Plan: - Continue antibiotics for another 7 days with step down from current regimen. - Wound care instructions provided: ? Clean the area regularly ? Cover when going out ? Leave uncovered at home when wearing loose clothes - Monitor for signs of infection (pus-like whitish discharge). - Clear discharge is normal and expected. - Follow-up in 2 weeks for wound check.
[2025-03-03 13:31] VITALS: BP 140/82; PULSE 90; RESP 18; TEMP 36.2; O2SAT 98; BMI 46.0
== END 2025-03-03 13:54 | disposition home or self-care (01) ==
LOC: HODSOBC 13:25
PROVIDERS: Supervising Provider Obstetrics & Gynecology; Visit Provider Obstetrics & Gynecology
DX: O90.2 Hematoma of obstetric wound (principal); Z88.8 Allergy status to other drugs, medicaments and biological substances
CPT/HCPCS: 99213; G0463